=== PATIENT | female | born 1980 | race Caucasian/White ===

== ENCOUNTER 2017-01-27 15:18 | Emergency (ER) | payer MEDICARE, MEDICAID ==
[2017-01-27] MEDS ORDERED: Ketorolac 60 MG/2 ML SDV IM ONE (15:28)
[2017-01-27] MEDS ORDERED: Acetaminophen/oxyCODONE 325-5 MG Tab PO ONE (16:14)
[2017-01-27] MEDS ORDERED: Acetaminophen/HYDROcodone 325-5 MG Tab PO ONE (16:16)
--- NOTE | 2017-01-27 16:24 | EDM.PDOC ---
ED HPI GENERAL MEDICAL PROBLEM - General Chief Complaint: Abdominal Pain Stated Complaint: LOWER ABD PAIN Time Seen by Provider: 01/27/17 16:00 Source of Information: Reports: Patient, Old Records History Limitations: Reports: No Limitations - History of Present Illness INITIAL COMMENTS - FREE TEXT/NARRATIVE: 36 yo female with a pHx of frequent ovarian cysts who presents today with left hemipelvic pain. Pain began fairly abruptly. No fever. Some brownish vaginal discharge. No change in bowels from her normal. Pain waxes and wanes. Has a Mirena IUD and normally does not have menstrual periods with this in. Has no nausea. Pain 8/10 in severity. No dysuria. 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: Reports: Other (see below) (none) L lower abdomen Pain Score (Numeric/FACES): 9 - Related Data Allergies Allergy/AdvReac Type Severity Reaction Status Date / Time oxycodone HCl [From Percocet] Allergy Itching Verified 07/02/16 14:12 tramadol Allergy Hives Verified 07/02/16 14:12 IV Dye Allergy Swelling Uncoded 01/04/15 16:27 Home Meds: Home Meds ALPRAZolam [Alprazolam] 0.5 mg PO BID PRN 03/09/16 [History] tiZANidine [Zanaflex] 4 mg PO BID 03/09/16 [History] Ondansetron [Zofran ODT] 4 mg PO Q6H PRN #7 tab.dis 07/02/16 [Rx] Sertraline [Zoloft] 50 mg PO DAILY 07/02/16 [History] Diclofenac Sodium [Diclofenac Sodium] 75 mg BID 01/27/17 [History] rOPINIRole HCl [Requip] 1 mg PO BEDTIME 01/27/17 [History] Past Medical History Genitourinary History: Reports: UTI, 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: Other OB/BYN History: leep procedure Musculoskeletal History: Reports: Fibromyalgia Other Musculoskeletal History: patient states she had a 'bad' right knee Psychiatric History: Reports: Anxiety Other Oncologic History: hx of stage 3 cervicaL CA Social & Family History - Family History Family Medical History: Noncontributory - Tobacco Use Smoking Status *Q: Current Every Day Smoker Years of Tobacco use: 20 Packs/Tins Daily: 1 Used Tobacco, but Quit: No Second Hand Smoke Exposure: Yes - Caffeine Use Caffeine Use: Reports: Coffee, Energy Drinks, Soda - Recreational Drug Use Recreational Drug Use: No - Living Situation & Occupation Living situation: Reports: Occupation: Disabled ED ROS GENERAL - Review of Systems Review Of Systems: See Below Constitutional: Reports: No Symptoms. Denies: Fever, Chills, Diaphoresis, Decreased Appetite HEENT: Reports: No Symptoms Respiratory: Reports: No Symptoms Cardiovascular: Reports: No Symptoms Endocrine: Reports: No Symptoms GI/Abdominal: Reports: Abdominal Pain (L hemipelvic) : Reports: Other (amenorrhea). Denies: Dysuria, Flank Pain, Frequency, Hematuria, Incontinence, Urgency, Urinary Retention Musculoskeletal: Reports: No Symptoms Skin: Reports: No Symptoms Neurological: Reports: No Symptoms Psychiatric: Reports: No Symptoms ED EXAM, GI/ABD - Physical Exam Exam: See Below Exam Limited By: No Limitations General Appearance: Alert, WD/WN, No Apparent Distress Eyes: Bilateral: Normal Appearance Ears: Normal External Exam, Normal Canal, Hearing Grossly Normal Nose: Normal Inspection, Normal Mucosa, No Blood Throat/Mouth: Normal Inspection, Normal Lips, Normal Teeth, Normal Oropharynx, Normal Voice, No Airway Compromise Head: Atraumatic, Normocephalic Neck: Normal Inspection, Supple, Non-Tender Respiratory/Chest: No Respiratory Distress, Lungs Clear, Normal Breath Sounds, No Accessory Muscle Use Cardiovascular: Regular Rate, Rhythm, No Edema GI/Abdominal: Normal Bowel Sounds, Soft, Tenderness (L hemipelvis), Rebound. No : Hypoactive Bowel Sounds, Hyperactive Bowel Sounds, Distention, Guarding, Rigidity, Splenomegaly, Hernia, McBurney's Sign, Siddiqi's Sign Back Exam: Normal Inspection, Full Range of Motion. No: CVA Tenderness (R), CVA Tenderness (L) Extremities: Normal Inspection, Normal Range of Motion, Non-Tender Neurological: Alert, Oriented, CN II-XII Intact, Normal Cognition, No Motor/ Sensory Deficits Psychiatric: Normal Affect, Normal Mood Skin Exam: Warm, Dry, Intact, Normal Color, No Rash Lymphatic: No Adenopathy Course - Vital Signs Text/Narrative:: Toradol 60 mg IM, Pine 2 po Vaginal US-bilateral cysts, fluid in the R hemipelvis. No visualized ectopic . Last Recorded V/S: Last Vital Signs Temp 36.5 C 01/27/17 15:18 Pulse 73 01/27/17 15:18 Resp 18 01/27/17 15:18 BP 126/90 01/27/17 15:18 Pulse Ox 100 01/27/17 15:18 - Orders/Labs/Meds Orders: Active Orders 24 hr Category Date Time Status Pelvis Non OB Ltd [US] Stat Exams 01/27/17 16:12 Taken Transvaginal Non OB [US] Stat Exams 01/27/17 15:26 Taken Labs: Laboratory Tests 01/27/17 01/27/17 01/27/17 Range/Units 16:30 16:30 17:00 WBC 6.5 (4.5-12.0) X10-3/uL RBC 4.45 (3.23-5.20) x10(6)uL Hgb 13.7 (11.5-15.5) g/dL Hct 40.1 (30.0-51.3) % MCV 89.9 (80-96) fL MCH 30.7 (27.7-33.6) pg MCHC 34.1 (32.2-35.4) g/dL RDW 12.2 (11.5-15.5) % Plt Count 172 (125-369) X10(3)uL C-Reactive Protein < 0.5 (0.0-1.0) mg/dL Urine Color Yellow (YELLOW) Urine Appearance Clear (CLEAR) Urine pH 5.0 (5.0-6.5) Ur Specific [place] 1.010 (1.010-1.025) Urine Protein Negative (NEGATIVE) mg/dL Urine Glucose (UA) Normal (NEGATIVE) mg/dL Urine Ketones Negative (NEGATIVE) mg/dL Urine Occult Blood Negative (NEGATIVE) Urine Nitrite Negative (NEGATIVE) Urine Bilirubin Negative (NEGATIVE) Urine Urobilinogen Normal (NEGATIVE) mg/dL Ur Leukocyte Esterase Negative (NEGATIVE) Urine RBC 0-5 (0) Urine WBC 0-5 (0) Ur Squamous Epith Cells Moderate H (NS,R,O) Urine Bacteria Few H (NS) Urine HCG, Qual (NEGATIVE) 01/27/17 Range/Units 17:00 WBC (4.5-12.0) X10-3/uL RBC (3.23-5.20) x10(6)uL Hgb (11.5-15.5) g/dL Hct (30.0-51.3) % MCV (80-96) fL MCH (27.7-33.6) pg MCHC (32.2-35.4) g/dL RDW (11.5-15.5) % Plt Count (125-369) X10(3)uL C-Reactive Protein (0.0-1.0) mg/dL Urine Color (YELLOW) Urine Appearance (CLEAR) Urine pH (5.0-6.5) Ur Specific [place] (1.010-1.025) Urine Protein (NEGATIVE) mg/dL Urine Glucose (UA) (NEGATIVE) mg/dL Urine Ketones (NEGATIVE) mg/dL Urine Occult Blood (NEGATIVE) Urine Nitrite (NEGATIVE) Urine Bilirubin (NEGATIVE) Urine Urobilinogen (NEGATIVE) mg/dL Ur Leukocyte Esterase (NEGATIVE) Urine RBC (0) Urine WBC (0) Ur Squamous Epith Cells (NS,R,O) Urine Bacteria (NS) Urine HCG, Qual Negative (NEGATIVE) Meds: Medications Discontinued Medications Generic Name Dose Route Start Last Admin Trade Name Freq PRN Reason Stop Dose Admin Hydrocodone Bitart/Acetaminophen 2 tab 01/27/17 16:16 01/27/17 16:27 Pine 325-5 Mg PO 01/27/17 16:17 2 tab ONETIME ONE Administration Ketorolac Tromethamine 60 mg 01/27/17 15:28 01/27/17 15:30 Toradol IM 01/27/17 15:29 60 mg ONETIME ONE Administration Oxycodone/Acetaminophen 1 tab 01/27/17 16:14 Percocet 325-5 Mg PO 01/27/17 16:15 ONETIME ONE Departure - Departure Time of Disposition: 17:35 Disposition: Home, Self-Care 01 Condition: Fair Clinical Impression: Pelvic pain - Discharge Information Forms: ED Department Discharge - My Orders Last 24 Hours: My Active Orders 01/27/17 15:26 Transvaginal Non OB [US] Stat 01/27/17 16:12 Pelvis Non OB Ltd [US] Stat - Assessment/Plan Last 24 Hours: My Active Orders 01/27/17 15:26 Transvaginal Non OB [US] Stat 01/27/17 16:12 Pelvis Non OB Ltd [US] Stat
[2017-01-27 19:30] VITALS: BP 122/82
--- NOTE | 2017-01-28 13:20 | US ---
INDICATION: Pelvic pain. PELVIC ULTRASOUND, NON-OB, LIMITED: Utilizing transabdominal probe, multiple ultrasonic images were obtained. The urinary bladder was empty, limiting the examination. No gross abnormality was seen, however, visualization with transvaginal probe will be necessary for further evaluation. INDICATION: Pelvic pain/need better visualization of the uterus and ovaries than was possible with the transabdominal probe. TRANSVAGINAL PELVIC ULTRASOUND, NON-OB: Utilizing transvaginal probe, multiple ultrasonic images were obtained and revealed free fluid posterior cul-de-sac and right adnexal area, which may be physiologic, but should be correlated clinically. The right ovary measured 3.3 x 3.2 x 1.5 cm with follicles present, the largest of which was approximately 1.15 cm. There is an appearance of a septation in one of the cystic structures, which is of questionable significance, producing a cyst within a cyst appearance. This could be reexamined with transvaginal probe in 2 or 6 weeks to confirm an involuting physiologic process. The uterus is retroflexed with a posterior myometrial mass which measured 1.82 x 1.38 x 1.10 cm. This shows fairly intense blood flow within it. It may represent an actively growing fibroid. Other than benign disease is difficult to entirely exclude, however, with the amount of blood flow present and follow- up may be warranted. There may be slight impingement of this mass on the endometrial cavity. The endometrial cavity was otherwise unremarkable, measuring approximately 5 mm. The uterus itself measured 6.2 x 5.1 x 3.9 cm. The left ovary measured 3 x 1.3 x 2.5 cm with a 1-cm follicle present. There was some minimal free fluid about the left ovary also noted. No adnexal mass lesions were identified. IMPRESSION: 1. Vascular mass posterior fundal myometrium, measuring a maximum of 1.8 cm. This likely represents a fibroid. However, follow-up may be warranted with the amount of blood flow present. It appears to be impinging on the border of the endometrium. Depending upon clinical correlation, follow-up ultrasound in 1-3 months or MRI of the pelvis may be helpful for further evaluation. 2. Ovaries appear fairly normal, with follicles bilaterally. One on the right has a slightly complex appearance, but still likely represents a benign process. 3. Free fluid noted in the pelvis which may be physiologic, but should be correlated clinically. MTDD
== END 2017-01-27 17:44 | disposition home or self-care (01) ==
LOC: FB.ED 15:18
DX: R10.2 Pelvic and perineal pain (principal); F41.9 Anxiety disorder, unspecified; F17.210 Nicotine dependence, cigarettes, uncomplicated; Z85.41 Personal history of malignant neoplasm of cervix uteri; Z79.899 Other long term (current) drug therapy; Z88.5 Allergy status to narcotic agent; Z88.6 Allergy status to analgesic agent; Z91.041 Radiographic dye allergy status; Z87.440 Personal history of urinary (tract) infections
CPT/HCPCS: 36415; 76830; 76857; 81001; 81025; 85027; 86140; 96372; 99284; A9270; J1885; 99283

== ENCOUNTER 2017-06-06 13:06 | Emergency (ER) | payer MEDICAID, MEDICARE ==
[2017-06-06 13:23] VITALS: BP 111/87
[2017-06-06] MEDS ORDERED: Ketorolac 60 MG/2 ML SDV IM ONE (13:43)
--- NOTE | 2017-06-06 13:50 | EDM.PDOC ---
ED HPI GENERAL MEDICAL PROBLEM - General Chief Complaint: Lower Extremity Injury/Pain Stated Complaint: RT HIP PAIN Time Seen by Provider: 06/06/17 13:30 Source of Information: Reports: Patient, Old Records History Limitations: Reports: No Limitations - History of Present Illness INITIAL COMMENTS - FREE TEXT/NARRATIVE: Jacquie reports some escalation of chronic pain affecting the R hip and lower back, more recently from attempting to do a load of laundry. Pain is worse with wt bearing on the R leg at the hip. 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 A more recent cortisone injection was administered by an orthopedist in [place] in December 2016. She had only temporary relief of some of her sxs. Her medical hx is complicated by reported fibromyalgia. She takes Volatren po for pain control. - Related Data Allergies Allergy/AdvReac Type Severity Reaction Status Date / Time oxycodone HCl [From Percocet] Allergy Itching Verified 06/06/17 13:12 tramadol Allergy Hives Verified 06/06/17 13:12 IV Dye Allergy Swelling Uncoded 06/06/17 13:12 Home Meds: Home Meds ALPRAZolam [Alprazolam] 0.5 mg PO BID PRN 03/09/16 [History] tiZANidine [Zanaflex] 4 mg PO BEDTIME 03/09/16 [History] Ondansetron [Zofran ODT] 4 mg PO Q6H PRN #7 tab.dis 07/02/16 [Rx] Sertraline [Zoloft] 50 mg PO DAILY 07/02/16 [History] Acetaminophen/HYDROcodone [[place] 325-10 MG] 1 - 2 tab PO Q6H PRN #10 tab [Rx] Diclofenac Sodium [Diclofenac Sodium] 75 mg PO BID 01/27/17 [History] rOPINIRole HCl [Requip] 1 mg PO BEDTIME 01/27/17 [History] tiZANidine HCl [Zanaflex] 2 mg PO DAILY 06/06/17 [History] Past Medical History Gastrointestinal History: Reports: Irritable Bowel Syndrome Genitourinary History: Reports: UTI, Recurrent 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 OB/BYN History: leep procedure Musculoskeletal History: Reports: Fibromyalgia Other Musculoskeletal History: patient states she had a 'bad' right knee Neurological History: Reports: Migraines Psychiatric History: Reports: Anxiety Other Oncologic History: hx of stage 3 cervicaL CA - Infectious Disease History Infectious Disease History: Reports: Chicken Pox - Past Surgical History HEENT Surgical History: Reports: Oral Surgery Social & Family History - Family History Family Medical History: Noncontributory - Tobacco Use Smoking Status *Q: Current Every Day Smoker Years of Tobacco use: 20 Packs/Tins Daily: 0.5 Used Tobacco, but Quit: No Second Hand Smoke Exposure: Yes - Caffeine Use Caffeine Use: Reports: Coffee, Energy Drinks, Soda - Recreational Drug Use Recreational Drug Use: Yes Recreational Drug Type: Reports: Marijuana/Hashish Recreational Drug Use Frequency: Socially - Living Situation & Occupation Living situation: Reports: Occupation: Disabled Review of Systems - Review of Systems Review Of Systems: ROS reveals no pertinent complaints other than HPI. ED EXAM, GENERAL - Physical Exam Exam: See Below Exam Limited By: No Limitations General Appearance: Alert, WD/WN, Anxious, Moderate Distress Head: Normocephalic Neck: Normal Inspection, Supple, Non-Tender, Full Range of Motion Respiratory/Chest: Lungs Clear, Chest Non-Tender Cardiovascular: Regular Rate, Rhythm GI/Abdominal: Normal Bowel Sounds, Soft, Non-Tender, No Organomegaly, No Distention, No Mass Rectal (Female) Exam: Deferred Back Exam: Other (mild scoliosis with convexity to L) Extremities: Leg Pain (R hip with maneuver; R knee: some patellar laxity, no joint effusion), Limited Range of Motion (R hip) Neurological: Alert, Oriented, CN II-XII Intact, Normal Cognition, Normal Reflexes, No Motor/Sensory Deficits Psychiatric: Normal Affect, Anxious Skin Exam: Warm, Dry Lymphatic: No Adenopathy Course - Vital Signs Text/Narrative:: Jacquie was administered Toradol 60 mg IM. She was given crutches for nonwt bearing to R leg. Last Recorded V/S: Last Vital Signs Temp 36.8 C 06/06/17 13:16 Pulse 89 06/06/17 13:16 Resp 19 06/06/17 13:16 BP 111/87 06/06/17 13:16 Pulse Ox 99 06/06/17 13:16 - Orders/Labs/Meds Meds: Medications Discontinued Medications Generic Name Dose Route Start Last Admin Trade Name Freq PRN Reason Stop Dose Admin Ketorolac Tromethamine 60 mg 06/06/17 13:43 Toradol IM 06/06/17 13:44 ONETIME ONE Departure - Departure Time of Disposition: 13:54 Disposition: Home, Self-Care 01 Condition: Fair Clinical Impression: Hip deformity, acquired Qualifiers: Laterality: right Qualified Code(s): M21.951 - Unspecified acquired deformity of right thigh - Discharge Information Referrals: Génesis Perry POST ACUTE CARE NURSE PRACTITIONER [Primary Care Provider] - - Problem List & Annotations (1) Hip deformity, acquired SNOMED Code(s): 29460489 Code(s): M21.959 - UNSPECIFIED ACQUIRED DEFORMITY OF UNSPECIFIED THIGH Status: Acute Priority: Low Annotation/Comment:: Follow up with orthopedist in [place], [place]. Qualifiers: Laterality: right Qualified Code(s): M21.951 - Unspecified acquired deformity of right thigh - Problem List Review Problem List Initiated/Reviewed/Updated: Yes - Assessment/Plan Plan: Follow up with orthopedist.
== END 2017-06-06 14:09 | disposition home or self-care (01) ==
LOC: FB.ED 13:06
DX: M21.951 Unspecified acquired deformity of right thigh (principal); F17.210 Nicotine dependence, cigarettes, uncomplicated; F41.9 Anxiety disorder, unspecified; Z79.899 Other long term (current) drug therapy; Z88.5 Allergy status to narcotic agent; Z88.6 Allergy status to analgesic agent; Z91.041 Radiographic dye allergy status
CPT/HCPCS: 96372; 99283; J1885; 99282

== ENCOUNTER 2017-11-25 23:29 | Emergency (ER) | payer MEDICARE, MEDICAID ==
[2017-11-26] MEDS ORDERED: Ketorolac 30 MG/ML SDV IM ONE (00:04)
--- NOTE | 2017-11-26 00:06 | EDM.PDOC ---
ED HPI GENERAL MEDICAL PROBLEM - General Chief Complaint: Eye Problems Stated Complaint: EYES PROBLEM Time Seen by Provider: 11/25/17 23:40 Source of Information: Reports: Patient History Limitations: Reports: No Limitations - History of Present Illness INITIAL COMMENTS - FREE TEXT/NARRATIVE: Jacquie reports reddened eyes over the past 5 days, with some discharge R>L. She was at [facility] this week for unrelated issues, and eye sxs seemed to improve on the journey home last pm. She reinserted her extended wear contacts last night, and awoke later today with burning eye pain bilaterally, with lacrimation and photophobia. Pain has been unconsolable. She tried some Gentamycin oph gtts belonging to spouse which did not help, and came to the [facility] ED this late pm for treatment. - Related Data Allergies Allergy/AdvReac Type Severity Reaction Status Date / Time gabapentin Allergy Headache Verified 11/25/17 23:59 oxycodone HCl [From Percocet] Allergy Itching Verified 06/06/17 13:12 tramadol Allergy Hives Verified 11/25/17 23:59 IV Dye Allergy Swelling Uncoded 06/06/17 13:12 Home Meds: Home Meds ALPRAZolam [Alprazolam] 0.5 mg PO BID PRN 03/09/16 [History] tiZANidine [Zanaflex] 4 mg PO BEDTIME 03/09/16 [History] Ondansetron [Zofran ODT] 4 mg PO Q6H PRN #7 tab.dis 07/02/16 [Rx] Sertraline [Zoloft] 50 mg PO DAILY 07/02/16 [History] Acetaminophen/HYDROcodone [[place] 325-10 MG] 1 - 2 tab PO Q6H PRN #10 tab [Rx] Diclofenac Sodium 75 mg PO BID 01/27/17 [History] rOPINIRole HCl [Requip] 1 mg PO BEDTIME 01/27/17 [History] tiZANidine HCl [Zanaflex] 2 mg PO DAILY 06/06/17 [History] Past Medical History Gastrointestinal History: Reports: Irritable Bowel Syndrome Genitourinary History: Reports: UTI, Recurrent 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 OB/BYN History: leep procedure Musculoskeletal History: Reports: Fibromyalgia Other Musculoskeletal History: patient states she had a 'bad' right knee Neurological History: Reports: Migraines Psychiatric History: Reports: Anxiety Other Oncologic History: hx of stage 3 cervicaL CA - Infectious Disease History Infectious Disease History: Reports: Chicken Pox - Past Surgical History HEENT Surgical History: Reports: Oral Surgery Social & Family History - Family History Family Medical History: Noncontributory - Caffeine Use Caffeine Use: Reports: Coffee, Energy Drinks, Soda - Living Situation & Occupation Living situation: Reports: Occupation: Disabled ED ROS GENERAL - Review of Systems Review Of Systems: See Below Constitutional: Reports: Malaise HEENT: Reports: Contact Lenses, Eye Discharge, Eye Pain, Rhinitis, Throat Pain Respiratory: Reports: No Symptoms Cardiovascular: Reports: No Symptoms Endocrine: Reports: No Symptoms GI/Abdominal: Reports: No Symptoms : Reports: No Symptoms Musculoskeletal: Reports: No Symptoms Skin: Reports: No Symptoms Neurological: Reports: No Symptoms Psychiatric: Reports: No Symptoms Hematologic/Lymphatic: Reports: No Symptoms Immunologic: Reports: No Symptoms ED EXAM GENERAL W FULL EYE - Physical Exam Exam: See Below Exam Limited By: Physical Impairment General Appearance: Alert, WD/WN, Anxious, Moderate Distress Eye Exam: Bilateral Eye: Conjunctival Injection, EOMI, PERRL Eyelids: Bilateral: Normal Appearance Conjunctiva & Sclera: Bilateral: Injected Cornea Exam: Bilateral: Corneal Abrasion (2 abrasions OS, 1 abrasion OD), Examined with Flourescein Extraocular Movements: Bilateral: Intact Pupils: Normal Accommodation Pupillary Size: Bilateral: 3 mm Pupillary Reaction: Bilateral: Brisk Anterior Chamber: Bilateral: Normal Appearance Posterior Chamber: Bilateral: Normal Funduscopic Ears: Normal External Exam, Normal TMs Nose: Normal Inspection, Normal Mucosa Throat/Mouth: Normal Inspection, Normal Lips, Normal Teeth, Normal Gums, Normal Oropharynx, Normal Voice Head: Normocephalic Neck: Normal Inspection, Supple, Non-Tender, Full Range of Motion Respiratory/Chest: Lungs Clear, Normal Breath Sounds Cardiovascular: Regular Rate, Rhythm Back Exam: Normal Inspection Extremities: Normal Inspection Neurological: Alert, Oriented, CN II-XII Intact, Normal Cognition, Normal Gait, No Motor/Sensory Deficits Psychiatric: Normal Affect, Anxious Skin Exam: Warm, Dry, Intact Lymphatic: No Adenopathy Course - Vital Signs Text/Narrative:: Following application of 0.5% Tetracaine opth gtts, external exam noted marked conjunctival injection, no fb seen; fluorscein stain confirms 1 corneal abrasion at 9 o'clock position OD; 1 corneal abrasion at 4 o'clock and 12 o' clock OS; no fb seen; ant chamber deep, fundi benign; pain was improved with Tetracaine gtts and Toradol 30 mg IM. Departure - Departure Time of Disposition: 00:21 Disposition: Home, Self-Care 01 Condition: Fair Clinical Impression: Corneal abrasion of both eyes due to contact lens - Discharge Information Referrals: Génesis Perry BIAS CUTTER [Primary Care Provider] - Forms: ED Department Discharge - Problem List & Annotations (1) Corneal abrasion of both eyes due to contact lens SNOMED Code(s): 963328359 Code(s): H18.823 - CORNEAL DISORDER DUE TO CONTACT LENS, BILATERAL Status: Acute Current Visit: Yes Annotation/Comment:: I sent Jacquie home with Sulamyd 10% opth gtts q 3 hrs, Ibuprofen tabs for pain, suggested sun glasses, and no contact lenses until cleared by provider. She was improved at time of discharge. - Problem List Review Problem List Initiated/Reviewed/Updated: Yes - Assessment/Plan Plan: Follow up with PCP.
[2017-11-26] MEDS ORDERED: Sulfacetamide 10% Ophth Soln 15 ML Bottle ONE (00:15)
[2017-11-26 08:10] VITALS: BP 105/77
== END 2017-11-26 00:45 | disposition home or self-care (01) ==
LOC: FB.ED 23:29
DX: H18.823 Corneal disorder due to contact lens, bilateral (principal); F41.9 Anxiety disorder, unspecified; G43.909 Migraine, unspecified, not intractable, without status migrainosus; Z79.899 Other long term (current) drug therapy; Z91.041 Radiographic dye allergy status; Z88.5 Allergy status to narcotic agent
CPT/HCPCS: 96372; 99282; A9270; J1885

== ENCOUNTER 2017-12-05 17:52 | Emergency (ER) | payer MEDICARE, MEDICAID ==
[2017-12-05 18:17] VITALS: BP 95/68
--- NOTE | 2017-12-05 20:03 | EDM.PDOC ---
ED HPI GENERAL MEDICAL PROBLEM - General Chief Complaint: Eye Problems Stated Complaint: SCRATCHED CORNEAS Time Seen by Provider: 12/05/17 19:25 Source of Information: Reports: Patient, Family History Limitations: Reports: No Limitations - History of Present Illness INITIAL COMMENTS - FREE TEXT/NARRATIVE: c/o b/l eye pain pt to [facility] over 1w ago for treatment for fibromyalgia and "a host of other problems" says she is disabled from the above had corneal abrasions b/l 1w ago when she removed her 30 day wear contact lens, she left them out x 1w, then put in 1d wear lens 2d ago, says she forgot to take them out yesterday, took them out this AM, has had b/l pain and tearing pt with minor irritation b/l but otherwise normal PE pt advised to continue current pain meds and to use cool compresses pt told that additional pain meds were not indicated for minor eye irritation pt left with her sister angry saying that they would be calling the office Bilateral eyes Pain Score (Numeric/FACES): 10 - Related Data Allergies Allergy/AdvReac Type Severity Reaction Status Date / Time gabapentin Allergy Headache Verified 12/05/17 18:09 oxycodone HCl [From Percocet] Allergy Itching Verified 12/05/17 18:09 tramadol Allergy Itching Verified 12/05/17 18:09 IV Dye Allergy Anaphylactic Uncoded 12/05/17 18:09 Shock Home Meds: Home Meds ALPRAZolam [Alprazolam] 0.5 mg PO BID PRN 03/09/16 [History] tiZANidine [Zanaflex] 4 mg PO BEDTIME 03/09/16 [History] Ondansetron [Zofran ODT] 4 mg PO Q6H PRN #7 tab.dis 07/02/16 [Rx] Sertraline [Zoloft] 100 mg PO DAILY 07/02/16 [History] Acetaminophen/HYDROcodone [[place] 325-10 MG] 1 - 2 tab PO Q6H PRN #10 tab [Rx] Diclofenac Sodium 75 mg PO BID 01/27/17 [History] rOPINIRole HCl [Requip] 1 mg PO BEDTIME 01/27/17 [History] tiZANidine HCl [Zanaflex] 2 mg PO DAILY 06/06/17 [History] Amphetamine/Dextroamphetamine [Adderall] 7.5 mg DAILY 12/05/17 [History] Sulfacetamide Sodium 1 drop EYEBOTH Q3H PRN 12/05/17 [History] Past Medical History HEENT History: Reports: Other (See Below) Other HEENT History: corneal abrasions Gastrointestinal History: Reports: Irritable Bowel Syndrome Genitourinary History: Reports: UTI, 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 History: Reports: Polycystic Ovaries, , Other (See Below) Other OB/BYN History: leep procedure, , cysts removed Musculoskeletal History: Reports: Fracture, Fibromyalgia Other Musculoskeletal History: patient states she had a 'bad' right knee, hx fracture L wrist, 'tear in R hip & elbow Neurological History: Reports: Migraines Psychiatric History: Reports: ADD, Anxiety, Depression Oncologic (Cancer) History: Reports: Cervix Other Oncologic History: hx of stage 3 cervicaL CA - Infectious Disease History Infectious Disease History: Reports: Chicken Pox - Past Surgical History HEENT Surgical History: Reports: Oral Surgery GI Surgical History: Reports: Colonoscopy, EGD Female Surgical History: Reports: Breast Reduction Social & Family History - Family History Family Medical History: Noncontributory - Tobacco Use Smoking Status *Q: Current Every Day Smoker Years of Tobacco use: 21 Packs/Tins Daily: 0.5 - Caffeine Use Caffeine Use: Reports: Tea - Alcohol Use Days Per Week of Alcohol Use: 1 Number of Drinks Per Day: 4 Total Drinks Per Week: 4 - Recreational Drug Use Recreational Drug Use: No Recreational Drug Type: Reports: Marijuana/Hashish Other Recreational Drug Type: 2-3 x per week Recreational Drug Use Frequency: Weekly - Living Situation & Occupation Living situation: Reports: Occupation: Disabled ED ROS GENERAL - Review of Systems Review Of Systems: See Below Constitutional: Reports: No Symptoms HEENT: Reports: Eye Pain Respiratory: Reports: No Symptoms Cardiovascular: Reports: No Symptoms Endocrine: Reports: No Symptoms GI/Abdominal: Reports: No Symptoms : Reports: No Symptoms Musculoskeletal: Reports: No Symptoms Skin: Reports: No Symptoms Neurological: Reports: No Symptoms Psychiatric: Reports: No Symptoms Hematologic/Lymphatic: Reports: No Symptoms Immunologic: Reports: No Symptoms ED EXAM GENERAL W FULL EYE - Physical Exam Exam: See Below Exam Limited By: No Limitations General Appearance: Alert, WD/WN, Other (very emotional, poor coping skills, dependency needs) Eye Exam: Bilateral Eye: Normal Inspection, Other (other then slight symmetric hyperemia the eye exam was normal b/l, flourscein instilled, no abrasions noted b/l, no f.b.) Extraocular Movements: Bilateral: Intact Pupillary Size: Bilateral: 4 mm Pupillary Reaction: Bilateral: Brisk Nose: Normal Inspection, Normal Mucosa, No Blood Throat/Mouth: Normal Inspection Head: Atraumatic, Normocephalic Neck: Normal Inspection. No: Lymphadenopathy (R), Lymphadenopathy (L) Course - Vital Signs Last Recorded V/S: Last Vital Signs Temp 36.8 C 12/05/17 18:08 Pulse 92 12/05/17 18:08 Resp 20 12/05/17 18:08 BP 95/68 12/05/17 18:08 Pulse Ox 99 12/05/17 18:08 Departure - Departure Time of Disposition: 20:06 Disposition: Home, Self-Care 01 Condition: Good Clinical Impression: Irritation of both eyes - Discharge Information Referrals: Génesis Perry PYTHON DJANGO DEVELOPER [Primary Care Provider] - Forms: ED Department Discharge Additional Instructions: Use cool compresses every hour as needed. No rubbing. Continue current pain meds. Use glasses for now. Contact your eye doctor regarding corrective lens as glasses appear to your best option. You may discontinue the medicated eye drops that you were given one week ago as they will provide no added benefit.
== END 2017-12-05 20:00 | disposition home or self-care (01) ==
LOC: FB.ED 17:52
DX: H57.8 Other specified disorders of eye and adnexa (principal); F17.210 Nicotine dependence, cigarettes, uncomplicated; F41.9 Anxiety disorder, unspecified; F32.9 Major depressive disorder, single episode, unspecified; Z79.899 Other long term (current) drug therapy; Z88.6 Allergy status to analgesic agent; Z88.5 Allergy status to narcotic agent; Z88.8 Allergy status to other drugs, medicaments and biological substances; Z91.041 Radiographic dye allergy status
CPT/HCPCS: 99282; 99283

== ENCOUNTER 2018-08-11 06:58 | Day surgery (SDC) | payer MEDICAID, MEDICARE ==
[~2018-08-11 06:58] MED LIST: Lactated Ringers 1,000 ML IV SCH; Sodium Chloride 0.9% 10 ML Syringe FLUSH PRN
[2018-08-11] MEDS ORDERED: fentaNYL 100 MCG/2 ML SDV IV ONE (06:59)
[2018-08-11] MEDS ORDERED: Ketorolac 30 MG/ML SDV IVPUSH ONE (06:59)
[2018-08-11] MEDS ORDERED: Lactated Ringers 1,000 ML IV ONE (06:59)
[2018-08-11] MEDS ORDERED: ceFAZolin 1 GM Vial IV ONE (06:59)
[2018-08-11] MEDS ORDERED: Lidocaine 2% 100 MG/5 ML Syringe IVPUSH ONE (06:59)
[2018-08-11] MEDS ORDERED: Propofol 200 MG/20 ML SDV IV ONE (06:59)
[2018-08-11] MEDS ORDERED: Ondansetron 4 MG/2 ML SDV IVPUSH ONE (06:59)
[2018-08-11] MEDS ORDERED: Dexamethasone 4 MG/ML 5 ML MDV IVPUSH ONE (06:59)
[2018-08-11] MEDS ORDERED: HYDROmorphone 2 MG/ML SDV IV ONE (06:59)
[2018-08-11] MEDS ORDERED: Midazolam 1 MG/ML 2 ML SDV IV ONE (06:59)
--- NOTE | 2018-08-11 08:15 | PCM.PN ---
- General Info Date of Service: 08/11/18 - Review of Systems Systems Review Comment:: 38 y/o female here for hemorrhoidectomy. She is medically stable to proceed with no significant changes to her health status since her last exam. I have again discussed the proposed hemorrhoidectomy with the patient. Expectations and instructions reviewed. She agrees to proceed accepting risks. - Patient Data Vitals - Most Recent: Last Vital Signs Temp 99.2 F 08/11/18 07:26 Pulse 75 08/11/18 07:26 Resp 17 08/11/18 07:26 BP 100/60 08/11/18 07:26 Pulse Ox 97 08/11/18 07:26 Weight - Most Recent: 124 lb Lab Results Last 24 Hours: Laboratory Results - last 24 hr 08/11/18 Range/Units 07:13 Urine HCG, Qual Negative (NEGATIVE) Med Orders - Current: Current Medications Lactated Ringer's (Ringers, Lactated) 1,000 mls @ 125 mls/hr IV ASDIRECTED TOMMIE Last Admin: 08/11/18 08:00 Dose: 125 mls/hr Sodium Chloride (Saline Flush) 10 ml FLUSH ASDIRECTED PRN PRN Reason: Keep Vein Open - Problem List Review Problem List Initiated/Reviewed/Updated: Yes - My Orders Last 24 Hours: My Active Orders 08/10/18 12:08 Resuscitation Status Routine 08/11/18 06:45 Patient Status [ADT] Routine Patient to Empty Bladder [RC] ASDIRECTED RT Incentive Spirometry [RC] ASDIRECTED Verify Patient Consent Obtain [RC] ASDIRECTED Lactated Ringers [Ringers, Lactated] 1,000 ml IV ASDIRECTED Sodium Chloride 0.9% [Saline Flush] 10 ml FLUSH ASDIRECTED PRN Peripheral IV Insertion Adult [OM.PC] Routine Sequential Compression Device [OM.PC] Routine 08/11/18 Breakfast Nothing Per Oral Diet [DIET] - Assessment Assessment:: Painful Hemorrhoids - Plan Plan:: Hemorrhoidectomy
[2018-08-11] MEDS ORDERED: Bupivacaine 0.5%/EPINEPHrine 1:200,000 50 ML MDV INJECT ONE (08:32)
--- NOTE | 2018-08-11 09:13 | PCM.OPNOTE ---
- General Post-Op/Procedure Note Date of Surgery/Procedure: 08/11/18 Operative Procedure(s): Hemorrhoidectomy Findings: Multiple large internal/external hemorrhoid complexes Pre Op Diagnosis: Symptomatic hemorhoids Post-Op Diagnosis: Same Anesthesia Technique: General ET Tube Primary Surgeon: Ronni Shields Pathology: hemorrhoids Output, Urine Amount: 0 EBL in mLs: 25 Complications: None Condition: Good
[2018-08-11 11:15] VITALS: BP 116/54
--- NOTE | 2018-08-11 13:38 | OR ---
DATE OF OPERATION: 08/11/2018 SURGEON: Ronni Shields MD PREOPERATIVE DIAGNOSIS: Symptomatic hemorrhoids. POSTOPERATIVE DIAGNOSIS: Symptomatic hemorrhoids. OPERATION PERFORMED: Hemorrhoidectomy. INDICATIONS FOR SURGERY: This 38-year-old female has presented with markedly painful hemorrhoids. She has some bleeding and frequent episodes of pain which is sometimes severe from these and she comes for hemorrhoidectomy. FINDINGS: Three major internal external hemorrhoidal complexes were identified. These were located at the 11, 7, and 4 o'clock positions. They are all prominent and show easy bleedability. They are not acutely inflamed at this time and no other pathology is seen. PROCEDURE IN DETAIL: The patient was taken to the operating room. She was given general endotracheal anesthesia. She was placed in a dorsal lithotomy position. The perineum was sterilely prepped with Betadine and draped. Digital rectal exam and anal dilation are performed. The half-soria operating anoscope is placed and careful examination of the anal canal was carried out. Hemorrhoids are identified as listed above. At each of the 3 locations, the hemorrhoid complex was removed. At each place, the hemorrhoidal vessel was suture ligated with 2-0 Vicryl. The area was infiltrated with Marcaine with epinephrine. The hemorrhoid is then excised preserving the underlying sphincter muscle and the mucosal defect was closed with a running 2-0 Vicryl. In this manner, these 3 major hemorrhoid complexes are removed. Careful inspection showed no sign of bleeding or any other complication. An Adaptic pack covered with dibucaine ointment was placed followed by a sterile dressing. The patient was then awakened, extubated, and taken from the operating room in satisfactory condition. ESTIMATED BLOOD LOSS: 25 mL. COMPLICATIONS: None. PROGNOSIS: Good. /[id number] IRENE/JASPER COON
== END 2018-08-11 11:19 | disposition home or self-care (01) ==
LOC: FB.SDS 06:58
PROVIDERS: ATTEND Surgery
DX: K64.4 Residual hemorrhoidal skin tags (principal); K64.8 Other hemorrhoids; F41.9 Anxiety disorder, unspecified; F32.9 Major depressive disorder, single episode, unspecified; F43.10 Post-traumatic stress disorder, unspecified; F98.8 Other specified behavioral and emotional disorders with onset usually occurring in childhood and adolescence; Z79.899 Other long term (current) drug therapy
CPT/HCPCS: 00902-QZ; 81025; 88304; J0690; J1100; J1170; J1885; J2001; J2250; J2405; J2704; J3010; J3490; J7120

== ENCOUNTER 2019-04-12 20:57 | Emergency (ER) | payer MEDICARE ==
[2019-04-12] MEDS ORDERED: hydrOXYzine HCl 50 MG/ML SDV IM ONE (21:11)
[2019-04-12] MEDS ORDERED: Morphine 10 MG/ML Syringe IM ONE ×2 (21:11→22:58)
[2019-04-12] MEDS ORDERED: Morphine 10 MG/ML SDV ONE (21:15)
[2019-04-12] MEDS: Morphine 10 MG/ML SDV IVPUSH ONE ×2 (21:20→23:00)
--- NOTE | 2019-04-13 03:28 | ER ---
DATE SEEN: 04/12/2019 REASON FOR VISIT: Shoulder pain. HISTORY OF PRESENT ILLNESS: This is a 39-year-old female complaining of right shoulder pain since yesterday. She had a lot of weeding and yard work, and since that time has had exacerbation of her chronic pain. She took Lortab at home and some diclofenac with no relief. PAST MEDICAL HISTORY: Fibromyalgia, chronic right knee pain, chronic shoulder pain. ALLERGIES: Please see the [employer]. REVIEW OF SYSTEMS: All other systems negative. PHYSICAL EXAMINATION: VITAL SIGNS: Blood pressure normal, temperature 98.1. EXTREMITIES: Right shoulder, no obvious swelling or deformity. There is tenderness to palpation anteriorly and diminished range of motion. Peripheral pulses at the radius are present. MENTAL STATUS: Alert. NEUROLOGIC: Normal. IMPRESSION: Right shoulder pain, chronic, with moderate exacerbation. PLAN: 1. Morphine 5 mg IM and Vistaril 50 mg IM. 2. Follow up with PCP on Tuesday. 3. Return to the ED with any worsening symptoms. /[id number] PAIGE/JASPER
== END 2019-04-12 21:28 | disposition home or self-care (01) ==
LOC: FB.ED 20:57
DX: G89.29 Other chronic pain (principal); M25.511 Pain in right shoulder
CPT/HCPCS: 96372; 99282; J2270; J3410

== ENCOUNTER 2019-07-18 19:55 | Emergency (ER) | payer MEDICARE, MEDICAID ==
[2019-07-18] MEDS ORDERED: Cephalexin 500 MG Cap PO ONE (19:56)
[2019-07-18] MEDS ORDERED: Lidocaine 2% with EPINEPHrine 1:100,000 20 ML MDV INFILT ONE (19:56)
--- NOTE | 2019-07-18 20:29 | EDM.PDOC ---
ED HPI GENERAL MEDICAL PROBLEM - General Stated Complaint: CUT HAND Time Seen by Provider: 07/18/19 20:25 Source of Information: Reports: Patient History Limitations: Reports: No Limitations - History of Present Illness INITIAL COMMENTS - FREE TEXT/NARRATIVE: Sustained laceration to the left hand by a utility knife - Related Data Allergies Allergy/AdvReac Type Severity Reaction Status Date / Time gabapentin Allergy Headache Verified 04/12/19 21:06 oxycodone HCl [From Percocet] Allergy Itching Verified 04/12/19 21:06 tramadol Allergy Itching Verified 04/12/19 21:06 IV Dye Allergy Anaphylactic Uncoded 08/11/18 07:17 Shock Home Meds: Home Meds tiZANidine [Zanaflex] 4 mg PO TID 03/09/16 [History] Ondansetron [Zofran ODT] 4 mg PO Q6H PRN #7 tab.dis 07/02/16 [Rx] Sertraline [Zoloft] 100 mg PO DAILY 07/02/16 [History] Acetaminophen/HYDROcodone [[place] 325-10 MG] 1 - 2 tab PO Q6H PRN #10 tab [Rx] Diclofenac Sodium 75 mg PO BID 01/27/17 [History] rOPINIRole HCl [Requip] 1 mg PO BEDTIME 01/27/17 [History] Amphetamine/Dextroamphetamine [Adderall] 10 mg PO BID 12/05/17 [History] Diclofenac Sodium [Voltaren] 4 gm TP ASDIRECTED PRN 08/10/18 [History] Eletriptan HBr 40 mg PO DAILY PRN 08/10/18 [History] Hydrocortisone Acetate [Anusol-Hc] 25 mg RC BID PRN 08/10/18 [History] Ketorolac [Toradol] 10 mg PO TID PRN 08/10/18 [History] LORazepam [Ativan] 0.5 - 1 mg PO BID PRN 08/10/18 [History] Levonorgestrel [Kyleena] 1 each IY ASDIRECTED 08/10/18 [History] Lidocaine 5% 1 applic TOP Q4H PRN 08/10/18 [History] Promethazine [Phenergan] 25 mg PO Q4H 08/10/18 [History] Past Medical History HEENT History: Reports: Other (See Below) Other HEENT History: corneal abrasions Cardiovascular History: Reports: None Respiratory History: Reports: None Gastrointestinal History: Reports: Colon Polyp, Hemorrhoids, Irritable Bowel Syndrome Genitourinary History: Reports: UTI, Recurrent 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: Other (See Below), Polycystic Ovaries, Other AUTOMATIC PROFILE SHAPER OPERATOR History: leep procedure, , cysts removed Musculoskeletal History: Reports: Fibromyalgia, Fracture Other Musculoskeletal History: patient states she had a 'bad' right knee, hx fracture L wrist, 'tear in R hip & elbow Neurological History: Reports: Migraines Psychiatric History: Reports: ADD, Anxiety, Depression, PTSD Endocrine/Metabolic History: Reports: None Hematologic History: Reports: None Immunologic History: Reports: None Oncologic (Cancer) History: Reports: Cervix Other Oncologic History: hx of stage 3 cervicaL CA Dermatologic History: Reports: None - Infectious Disease History Infectious Disease History: Reports: Chicken Pox - Past Surgical History Head Surgeries/Procedures: Reports: None HEENT Surgical History: Reports: Oral Surgery GI Surgical History: Reports: Colonoscopy, EGD Female Surgical History: Reports: Breast Reduction Social & Family History - Family History Family Medical History: Noncontributory - Caffeine Use Caffeine Use: Reports: Tea - Living Situation & Occupation Living situation: Reports: Occupation: Disabled Review of Systems - Review of Systems Review Of Systems: Comprehensive ROS is negative, except as noted in HPI. ED EXAM, GENERAL - Physical Exam Exam: See Below Free Text/Narrative:: 3 cm laceration left palm General Appearance: Alert, WD/WN ED TRAUMA EXTREMITY PROCEDURES - Laceration/Wound Repair Left Medial Hand Lac/Wound Length In cm: 3 Appearance: Superficial, Moderately Contaminated Distal NVT: Neuro & Vascular Intact Anesthetic Type: Local Local Anesthesia - Lidocaine (Xylocaine): 2% with EPI Local Anesthetic Volume: 3cc Skin Prep: Chlorhexidine (Hibiciens) Exploration/Debridement/Repair: In a Bloodless Field Closed With: Sutures Suture Size: 4-0 Suture Type: Prolene Drain Placement: No Sterile Dressing Applied: Nurse Tetanus Status Addressed: Yes Complications: No Progress/Comments: Cephalexin 500 mg po tid x 5days Departure - Departure Time of Disposition: 20:27 Disposition: Home, Self-Care 01 Condition: Good Clinical Impression: Laceration - Discharge Information Referrals: Génesis Perry NP [Primary Care Provider] - - Problem List & Annotations (1) Laceration SNOMED Code(s): 777669407 Code(s): SLJ1122 - Status: Acute Current Visit: Yes Annotation/Comment :: left hand - Problem List Review Problem List Initiated/Reviewed/Updated: Yes - Assessment/Plan Plan: [place] home . Cephalexin for prophylaxis. Remove sutures in 1 week
== END 2019-07-18 20:45 | disposition home or self-care (01) ==
LOC: FB.ED 19:55
DX: S61.412A Laceration without foreign body of left hand, initial encounter (principal); F41.9 Anxiety disorder, unspecified; F32.9 Major depressive disorder, single episode, unspecified; Z88.5 Allergy status to narcotic agent; Z88.8 Allergy status to other drugs, medicaments and biological substances; Z91.041 Radiographic dye allergy status; Z79.899 Other long term (current) drug therapy; W26.0XXA Contact with knife, initial encounter
CPT/HCPCS: 12002; 99282; A9270; 99283

== ENCOUNTER 2019-12-20 12:42 | Emergency (ER) | payer MEDICARE, MEDICAID ==
[2019-12-20] MEDS ORDERED: LORazepam 2 MG/ML SDV IM PRN (13:27)
[2019-12-20] MEDS ORDERED: Potassium Chloride 20 MEQ Tab.ER PO ONE (14:07)
--- NOTE | 2019-12-20 14:11 | EDM.PDOC ---
ED HPI GENERAL MEDICAL PROBLEM - General Stated Complaint: BOTH HANDS NUMB,WEAKNESS Time Seen by Provider: 12/20/19 13:10 Source of Information: Reports: Patient History Limitations: Reports: No Limitations - History of Present Illness INITIAL COMMENTS - FREE TEXT/NARRATIVE: Patient presented to the ED because of peripheral numbness and tingling and she feels like she couldn't move her arm because of intense spasm. She was talking to her sas clinical programmer at 11 am and then she had an anxiety attack, took 1 mg xanax which didn't provide any relief. Bilateral Arm Pain Score (Numeric/FACES): 6 - Related Data Allergies Allergy/AdvReac Type Severity Reaction Status Date / Time gabapentin Allergy Headache Verified 12/20/19 13:04 oxycodone HCl [From Percocet] Allergy Itching Verified 12/20/19 13:04 tramadol Allergy Itching Verified 12/20/19 13:04 IV Dye Allergy Anaphylactic Uncoded 12/20/19 13:04 Shock Home Meds: Home Meds tiZANidine [Zanaflex] 4 mg PO TID PRN 03/09/16 [History] Ondansetron [Zofran ODT] 4 mg PO Q6H PRN #7 tab.dis 07/02/16 [Rx] Sertraline [Zoloft] 100 mg PO DAILY 07/02/16 [History] Acetaminophen/HYDROcodone [[place] 325-10 MG] 1 - 2 tab PO Q6H PRN #10 tab [Rx] Diclofenac Sodium 75 mg PO BID 01/27/17 [History] rOPINIRole HCl [Requip] 1 mg PO BEDTIME 01/27/17 [History] Amphetamine/Dextroamphetamine [Adderall] 10 mg PO BID 12/05/17 [History] Eletriptan Hydrobromide [Eletriptan HBr] 40 mg PO DAILY PRN 08/10/18 [History] Ketorolac [Toradol] 10 mg PO TID PRN 08/10/18 [History] LORazepam [Ativan] 0.5 - 1 mg PO BID PRN 08/10/18 [History] Lidocaine 5% 1 applic TOP Q4H PRN 08/10/18 [History] Promethazine [Phenergan] 25 mg PO Q4H 08/10/18 [History] levonorgestreL [Kyleena] 1 each IY ASDIRECTED 08/10/18 [History] Potassium Chloride [Klor-Con M20] 40 meq PO Q2H #4 tab.er 12/20/19 [Rx] hydrOXYzine pamoate [Vistaril] 50 mg PO Q6H PRN #30 cap 12/20/19 [Rx] Past Medical History HEENT History: Reports: Other (See Below) Other HEENT History: corneal abrasions Cardiovascular History: Reports: None Respiratory History: Reports: None Gastrointestinal History: Reports: Colon Polyp, Hemorrhoids, Irritable Bowel Syndrome Genitourinary History: Reports: UTI, Recurrent 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 (See Below), Polycystic Ovaries, Other CLERK STENOGRAPHER History: leep procedure, , cysts removed Musculoskeletal History: Reports: Fibromyalgia, Fracture Other Musculoskeletal History: patient states she had a 'bad' right knee, hx fracture L wrist, 'tear in R hip & elbow Neurological History: Reports: Migraines Psychiatric History: Reports: ADD, Anxiety, Depression, PTSD Endocrine/Metabolic History: Reports: None Hematologic History: Reports: None Immunologic History: Reports: None Oncologic (Cancer) History: Reports: Cervix Other Oncologic History: hx of stage 3 cervicaL CA Dermatologic History: Reports: None - Infectious Disease History Infectious Disease History: Reports: Chicken Pox - Past Surgical History Head Surgeries/Procedures: Reports: None HEENT Surgical History: Reports: Oral Surgery GI Surgical History: Reports: Colonoscopy, EGD Female Surgical History: Reports: Breast Reduction Social & Family History - Family History Family Medical History: Noncontributory - Caffeine Use Caffeine Use: Reports: Tea - Living Situation & Occupation Living situation: Reports: Occupation: Disabled ED ROS GENERAL - Review of Systems Review Of Systems: See Below Constitutional: Reports: No Symptoms HEENT: Reports: No Symptoms Respiratory: Reports: No Symptoms Cardiovascular: Reports: No Symptoms Endocrine: Reports: No Symptoms GI/Abdominal: Reports: No Symptoms : Reports: No Symptoms Musculoskeletal: Reports: No Symptoms Skin: Reports: No Symptoms Neurological: Reports: No Symptoms Psychiatric: Reports: Agitation, Anxiety ED EXAM, GENERAL - Physical Exam Exam: See Below Exam Limited By: No Limitations General Appearance: Alert, No Apparent Distress Eye Exam: Bilateral Eye: PERRL Ears: Normal External Exam Nose: Normal Inspection, Normal Mucosa Throat/Mouth: Normal Inspection, Normal Lips Head: Atraumatic, Normocephalic Neck: Normal Inspection, Supple, Non-Tender Respiratory/Chest: No Respiratory Distress, Lungs Clear Cardiovascular: Normal Peripheral Pulses, Regular Rate, Rhythm GI/Abdominal: Normal Bowel Sounds, Soft, Non-Tender Back Exam: Normal Inspection, Full Range of Motion Extremities: Normal Inspection, Normal Range of Motion, Non-Tender Neurological: Alert, Oriented, CN II-XII Intact Psychiatric: Anxious, Tearful Course - Vital Signs Text/Narrative:: labs reviewed and discussed with patient and verbalized full understanding Klor con 40 meq x1 ativan 2 mg IM x1 Vistaril 50 mg p[o x1 Last Recorded V/S: Last Vital Signs Temp 36.7 C 12/20/19 14:28 Pulse 73 12/20/19 14:28 Resp 18 12/20/19 14:28 BP 108/76 12/20/19 14:28 Pulse Ox 100 12/20/19 14:28 - Orders/Labs/Meds Labs: Laboratory Tests 12/20/19 12/20/19 Range/Units 13:30 13:30 Sodium 139 (135-145) mmol/L Potassium 3.4 L (3.5-5.3) mmol/L Chloride 104 (100-110) mmol/L Carbon Dioxide 23 (21-32) mmol/L BUN 19 H (7-18) mg/dL Creatinine 0.9 (0.55-1.02) mg/dL Est Cr Clr Drug Dosing 71.40 mL/min Estimated GFR (MDRD) > 60 (>60) BUN/Creatinine Ratio 21.1 H (9-20) Glucose 80 (80-116) mg/dL Calcium 9.0 (8.6-10.2) mg/dL Magnesium 1.9 (1.8-2.5) mg/dL Meds: Medications Discontinued Medications Generic Name Dose Route Start Last Admin Trade Name Freq PRN Reason Stop Dose Admin Hydroxyzine Pamoate 50 mg 12/20/19 14:07 12/20/19 14:12 Vistaril PO 12/20/19 14:08 50 mg NOW STA Administration Lorazepam 2 mg 12/20/19 13:27 12/20/19 13:47 Ativan IM 2 mg ONETIME PRN Administration Anxiety Potassium Chloride 40 meq 12/20/19 14:07 12/20/19 14:12 Klor-Con M20 PO 12/20/19 14:08 40 meq ONETIME ONE Administration Departure - Departure Time of Disposition: 14:10 Disposition: Home, Self-Care 01 Condition: Good Clinical Impression: Anxiety, Hypokalemia - Discharge Information Prescriptions: hydrOXYzine pamoate [Vistaril] 50 mg PO Q6H PRN #30 cap PRN Reason: anxiety/nausea/sleep Potassium Chloride [Klor-Con M20] 40 meq PO Q2H #4 tab.er Instructions: Hypokalemia, Panic Attack, [id number] Referrals: Génesis Perry HEATER OPERATOR HELPER [Primary Care Provider] - Forms: ED Department Discharge Additional Instructions: please read discharge instructions on panic attack and anxiety take your xanax vistaril 50 mg every 6 hours as needed for anxiety, nausea,sleep klor con 20 meq, take 2 tablets every 2 hours for 2 doses follow up as needed Sepsis Event Note - Evaluation Sepsis Screening Result: No Definite Risk - Focused Exam Date Exam was Performed: 12/21/19 Time Exam was Performed: 05:40
== END 2019-12-20 14:28 | disposition home or self-care (01) ==
LOC: FB.ED 12:42
DX: F41.9 Anxiety disorder, unspecified (principal); E87.6 Hypokalemia; F32.9 Major depressive disorder, single episode, unspecified; G43.909 Migraine, unspecified, not intractable, without status migrainosus; Z88.8 Allergy status to other drugs, medicaments and biological substances; Z88.5 Allergy status to narcotic agent; Z91.041 Radiographic dye allergy status; Z79.899 Other long term (current) drug therapy
CPT/HCPCS: 36415; 80048; 83735; 96372; 99283; A9270; J2060

== ENCOUNTER 2020-06-10 00:17 | Emergency (ER) | payer MEDICARE, MEDICAID ==
[2020-06-10] MEDS ORDERED: Ketorolac 30 MG/ML SDV IVPUSH ONE (00:40)
[2020-06-10] MEDS ORDERED: Morphine 2 MG/ML SYRINGE IVPUSH ONE (00:41)
[2020-06-10] MEDS ORDERED: Cyclobenzaprine 10 MG Tab PO ONE (00:43)
--- NOTE | 2020-06-10 01:59 | EDM.PDOC ---
ED HPI GENERAL MEDICAL PROBLEM - General Chief Complaint: Lower Extremity Injury/Pain Stated Complaint: HIP Time Seen by Provider: 06/10/20 00:35 Source of Information: Reports: Patient History Limitations: Reports: No Limitations - History of Present Illness INITIAL COMMENTS - FREE TEXT/NARRATIVE: Patient presented to the ED because of a worsening chronic right hip pain. She t ook her [place] 10 mg and Toradol 10 mg po without significant relief. She denies any recent trauma or fall. Treatments DRUG COORDINATOR: Reports: Other Medication(s) Other Treatments DRUG COORDINATOR: toradol 10mg 10pm, 5mg Lortab 2 tabs 1800. right hip Pain Score (Numeric/FACES): 7 - Related Data Allergies Allergy/AdvReac Type Severity Reaction Status Date / Time gabapentin Allergy Headache Verified 12/20/19 13:04 oxycodone HCl [From Percocet] Allergy Itching Verified 12/20/19 13:04 tramadol Allergy Itching Verified 12/20/19 13:04 IV Dye Allergy Anaphylactic Uncoded 12/20/19 13:04 Shock Home Meds: Home Meds tiZANidine [Zanaflex] 4 mg PO TID PRN 03/09/16 [History] Ondansetron [Zofran ODT] 4 mg PO Q6H PRN #7 tab.dis 07/02/16 [Rx] Sertraline [Zoloft] 100 mg PO DAILY 07/02/16 [History] Acetaminophen/HYDROcodone [[place] 325-10 MG] 1 - 2 tab PO Q6H PRN #10 tab 01/27/17 [Rx] Diclofenac Sodium 75 mg PO BID 01/27/17 [History] rOPINIRole HCl [Requip] 1 mg PO BEDTIME 01/27/17 [History] Amphetamine/Dextroamphetamine [Adderall] 10 mg PO BID 12/05/17 [History] Eletriptan Hydrobromide [Eletriptan HBr] 40 mg PO DAILY PRN 08/10/18 [History] Ketorolac [Toradol] 10 mg PO TID PRN 08/10/18 [History] LORazepam [Ativan] 0.5 - 1 mg PO BID PRN 08/10/18 [History] Lidocaine 5% 1 applic TOP Q4H PRN 08/10/18 [History] Promethazine [Phenergan] 25 mg PO Q4H 08/10/18 [History] levonorgestreL [Kyleena] 1 each IY ASDIRECTED 08/10/18 [History] Potassium Chloride [Klor-Con M20] 40 meq PO Q2H #4 tab.er 12/20/19 [Rx] hydrOXYzine pamoate [Vistaril] 50 mg PO Q6H PRN #30 cap 12/20/19 [Rx] predniSONE [Prednisone] 40 mg PO DAILY #10 tablet 06/10/20 [Rx] Past Medical History HEENT History: Reports: Other (See Below) Other HEENT History: corneal abrasions Cardiovascular History: Reports: None Respiratory History: Reports: None Gastrointestinal History: Reports: Colon Polyp, Hemorrhoids, Irritable Bowel Syndrome Genitourinary History: Reports: UTI, 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 (See Below), Polycystic Ovaries, Other MOLD SHOP SUPERVISOR History: leep procedure, , cysts removed Musculoskeletal History: Reports: Fibromyalgia, Fracture Other Musculoskeletal History: patient states she had a 'bad' right knee, hx fracture L wrist, 'tear in R hip & elbow Neurological History: Reports: Migraines Psychiatric History: Reports: ADD, Anxiety, Depression, PTSD Endocrine/Metabolic History: Reports: None Hematologic History: Reports: None Immunologic History: Reports: None Oncologic (Cancer) History: Reports: Cervix Other Oncologic History: hx of stage 3 cervicaL [place] Dermatologic History: Reports: None - Infectious Disease History Infectious Disease History: Reports: Chicken Pox - Past Surgical History Head Surgeries/Procedures: Reports: None HEENT Surgical History: Reports: Oral Surgery GI Surgical History: Reports: Colonoscopy, EGD Female Surgical History: Reports: Breast Reduction Oncologic Surgical History: Reports: None Social & Family History - Family History Family Medical History: No Pertinent Family History - Tobacco Use Tobacco Use Status *Q: Never Tobacco User - Caffeine Use Caffeine Use: Reports: Soda, Tea - Recreational Drug Use Recreational Drug Use: No - Living Situation & Occupation Living situation: Reports: Occupation: Disabled Review of Systems - Review of Systems Review Of Systems: See Below Constitutional: Reports: No Symptoms Eyes: Reports: No Symptoms Ears: Reports: No Symptoms Nose: Reports: No Symptoms Mouth/Throat: Reports: No Symptoms Respiratory: Reports: No Symptoms Cardiovascular: Reports: No Symptoms GI/Abdominal: Reports: No Symptoms Genitourinary: Reports: No Symptoms Musculoskeletal: Reports: Other (rt hip pain) Skin: Reports: No Symptoms ED EXAM, GENERAL - Physical Exam Exam: See Below Exam Limited By: No Limitations General Appearance: Alert, No Apparent Distress Eye Exam: Bilateral Eye: PERRL Ears: Normal External Exam, Normal Canal Nose: Normal Inspection, Normal Mucosa Throat/Mouth: Normal Inspection, Normal Lips Head: Atraumatic, Normocephalic Neck: Normal Inspection, Supple, Non-Tender, Full Range of Motion Respiratory/Chest: No Respiratory Distress, Lungs Clear, Normal Breath Sounds Cardiovascular: Normal Peripheral Pulses, Regular Rate, Rhythm, No Edema, No Gallop GI/Abdominal: Normal Bowel Sounds, Soft, Non-Tender, No Organomegaly Back Exam: Normal Inspection, Full Range of Motion Extremities: Normal Inspection, Normal Range of Motion, Non-Tender, No Pedal Edema, Normal Capillary Refill Neurological: Other (RT hip tenderness) Course - Vital Signs Text/Narrative:: Toradol 30 mg IV Morphine 2 mg IV Flexeril 10 mg PO Last Recorded V/S: Last Vital Signs Temp 36.8 C 06/10/20 00:30 Pulse 76 06/10/20 00:30 Resp 18 06/10/20 00:30 BP 108/69 06/10/20 00:30 Pulse Ox 99 06/10/20 00:30 - Orders/Labs/Meds Meds: Medications Discontinued Medications Generic Name Dose Route Start Last Admin Trade Name Ge PRN Reason Stop Dose Admin Cyclobenzaprine HCl 10 mg 06/10/20 00:43 06/10/20 00:52 Flexeril PO 06/10/20 00:44 10 mg ONETIME ONE Administration Ketorolac Tromethamine 30 mg 06/10/20 00:40 06/10/20 00:54 Toradol IVPUSH 06/10/20 00:41 30 mg ONETIME ONE Administration Morphine Sulfate 2 mg 06/10/20 00:41 06/10/20 01:03 Morphine IVPUSH 06/10/20 00:42 2 mg ONETIME ONE Administration Departure - Departure Time of Disposition: 01:55 Disposition: Home, Self-Care 01 Condition: Good Clinical Impression: Chronic pain - Discharge Information Prescriptions: predniSONE [Prednisone] 40 mg PO DAILY #10 tablet Instructions: Chronic Pain, Adult Referrals: Génesis Perry NP [Primary Care Provider] - Forms: ED Department Discharge Additional Instructions: please read discharge instructions on chronic pain continue present meds take prednisone 20 mg, 2 tablets daily for 5 days follow up as needed Sepsis Event Note (ED) - Evaluation Sepsis Screening Result: No Definite Risk
== END 2020-06-10 02:07 | disposition home or self-care (01) ==
LOC: FB.ED 00:17
DX: G89.29 Other chronic pain (principal); M25.551 Pain in right hip; F41.9 Anxiety disorder, unspecified; F32.9 Major depressive disorder, single episode, unspecified; Z88.8 Allergy status to other drugs, medicaments and biological substances; Z88.5 Allergy status to narcotic agent; Z91.041 Radiographic dye allergy status; Z79.899 Other long term (current) drug therapy
CPT/HCPCS: 96374; 96375; 99283-25; A9270-GY; J1885; J2270

== ENCOUNTER 2020-10-19 14:31 | Emergency (ER) | payer MEDICARE, MEDICAID ==
--- NOTE | 2020-10-19 15:03 | EDM.PDOC ---
ED HPI GENERAL MEDICAL PROBLEM - General Chief Complaint: Lower Extremity Injury/Pain Stated Complaint: L KNEE Time Seen by Provider: 10/19/20 15:00 Source of Information: Reports: Patient History Limitations: Reports: No Limitations - History of Present Illness INITIAL COMMENTS - FREE TEXT/NARRATIVE: 40-year-old female who reports woke yesterday morning with some pain in her left knee. She reports that she does not remember any definite injury but has been walking up steps often and has had some twisting of the knee. The pain was okay with walking yesterday but was much worse with any twisting and the pain has progressively worsened since then. She reports the pain as a 2-3/10 now at rest but when she tries to walk he goes up to 5-6/10 and with certain twisting movements it goes up to a 10/10. It is a sharp pain with the more intense pains and it is a throbbing and aching pain otherwise. She points to the anterior medial knee area as the area of the pain. She does feel that there has been some swelling in this area. There is no redness or increased warmth. She has had no fevers or chills. There are no other joint pains. She has applied some lidocaine cream to the area with some relief of the pain. There are no other associated signs or symptoms. There are no other modifying factors. Onset: Other (Yesterday morning) Duration: Getting Worse Location: Reports: Lower Extremity, Left (Left knee) Quality: Reports: Ache, Sharp, Throbbing Severity: Moderate (to severe.) Improves with: Reports: Rest Worsens with: Reports: Other (Palpation), Movement (Particularly twisting.) Context: Reports: Other (As above.) Associated Symptoms: Reports: No Other Symptoms Treatments COMPUTER APPLICATIONS DEVELOPER: Reports: Other Medication(s) (Lidocaine cream) - Related Data Allergies Allergy/AdvReac Type Severity Reaction Status Date / Time gabapentin Allergy Headache Verified 10/19/20 16:23 oxycodone HCl [From Percocet] Allergy Itching Verified 10/19/20 16:23 tramadol Allergy Itching Verified 10/19/20 16:23 IV Dye Allergy Anaphylactic Uncoded 12/20/19 13:04 Shock Home Meds: Home Meds tiZANidine [Zanaflex] 4 mg PO TID PRN 03/09/16 [History] Sertraline [Zoloft] 100 mg PO DAILY 07/02/16 [History] Diclofenac Sodium 75 mg PO BID 01/27/17 [History] rOPINIRole HCl [Requip] 1 mg PO BEDTIME 01/27/17 [History] Amphetamine/Dextroamphetamine [Adderall] 10 mg PO BID 12/05/17 [History] Eletriptan Hydrobromide [Eletriptan HBr] 40 mg PO DAILY PRN 08/10/18 [History] LORazepam [Ativan] 0.5 - 1 mg PO BID PRN 08/10/18 [History] Lidocaine 5% 1 applic TOP Q4H PRN 08/10/18 [History] Promethazine [Phenergan] 25 mg PO Q4H 08/10/18 [History] levonorgestreL [Kyleena] 1 each IY ASDIRECTED 08/10/18 [History] Past Medical History Gastrointestinal History: Reports: Colon Polyp, Hemorrhoids, Irritable Bowel Syndrome Genitourinary History: Reports: UTI, 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: Polycystic Ovaries, Other (See Below) Other ACTUARIAL SCIENCE PROFESSOR History: leep procedure, , cysts removed Musculoskeletal History: Reports: Fibromyalgia, Fracture Other Musculoskeletal History: patient states she had a 'bad' right knee, hx fracture L wrist, 'tear in R hip & elbow Neurological History: Reports: Migraines Psychiatric History: Reports: ADD, Anxiety, Depression, PTSD Oncologic (Cancer) History: Reports: Cervix Other Oncologic History: hx of stage 3 cervicaL [place] - Infectious Disease History Infectious Disease History: Reports: Chicken Pox - Past Surgical History HEENT Surgical History: Reports: Oral Surgery GI Surgical History: Reports: Colonoscopy, EGD Female Surgical History: Reports: Breast Reduction, Cystectomy (Laparoscopic ovarian cystectomy), LEEP (2) Social & Family History - Tobacco Use Tobacco Use Status *Q: Current Every Day Tobacco User - Caffeine Use Caffeine Use: Reports: Soda, Tea - Alcohol Use Alcohol Use History: Yes Alcohol Use Frequency: Monthly (Maybe every 2 weeks.) - Living Situation & Occupation Living situation: Reports: Occupation: Disabled Review of Systems - Review of Systems Review Of Systems: See Below Constitutional: Reports: No Symptoms Eyes: Reports: No Symptoms Ears: Reports: No Symptoms Nose: Reports: No Symptoms Mouth/Throat: Reports: No Symptoms Respiratory: Reports: No Symptoms Cardiovascular: Reports: No Symptoms GI/Abdominal: Reports: No Symptoms Genitourinary: Reports: No Symptoms Musculoskeletal: Reports: Joint Pain (Left knee pain) Skin: Reports: No Symptoms Neurological: Reports: No Symptoms Psychiatric: Reports: No Symptoms ED EXAM, GENERAL - Physical Exam Exam: See Below Exam Limited By: No Limitations General Appearance: Alert, WD/WN, Mild Distress (Appears in some pain. She is nontoxic.) Eye Exam: Bilateral Eye: EOMI, Normal Inspection Ears: Normal External Exam, Hearing Grossly Normal Ear Exam: Bilateral Ear: Auricle Normal Nose: Normal Inspection, Normal Mucosa, No Blood Throat/Mouth: Normal Inspection, Normal Lips, Normal Oropharynx, Normal Voice, No Airway Compromise Head: Atraumatic, Normocephalic Neck: Normal Inspection, Supple, Non-Tender, Full Range of Motion Respiratory/Chest: No Respiratory Distress, Lungs Clear, Normal Breath Sounds, No Accessory Muscle Use, Chest Non-Tender Cardiovascular: Normal Peripheral Pulses, Regular Rate, Rhythm, No Murmur Peripheral Pulses: 2+: Dorsalis Pedis (L), Dorsalis Pedis (R) GI/Abdominal: Normal Bowel Sounds, Soft, Non-Tender, No Mass Back Exam: Normal Inspection Extremities: Normal Range of Motion (Despite pain.), No Pedal Edema, Normal Capillary Refill, Other (Tenderness along the medial joint line of the left knee. There is no ligamentous laxity. Negative Hemant's). No: Joint Swelling Neurological: Alert, Oriented, CN II-XII Intact, Normal Cognition, No Motor/Sensory Deficits Psychiatric: Normal Affect Skin Exam: Warm, Dry, Intact, Normal Color, No Rash Course - Vital Signs Last Recorded V/S: Last Vital Signs Temp 36.1 C 10/19/20 14:35 Pulse 66 10/19/20 14:35 Resp 18 10/19/20 14:35 BP 111/79 10/19/20 14:35 Pulse Ox 100 10/19/20 14:35 - Orders/Labs/Meds Orders: Active Orders 24 hr Category Date Time Status Knee 3V Lt [CR] Stat Exams 10/19/20 15:16 Taken - Radiology Interpretation Free Text/Narrative:: X-ray of left knee shows no fracture or malalignment. - Re-Assessments/Exams Free Text/Narrative Re-Assessment/Exam: 10/19/20 17:00: The patient and felt that she needed something to eat and was given a snack. She remains hemodynamically stable. Left knee x-ray shows no definite abnormality. I suspect this could be a meniscus injury and I will have the nursing staff give the patient crutches and apply an Flaquito wrap to her left knee. She will need to follow-up with her primary provider and may need orthopedic referral. She can take ibuprofen and Tylenol as needed for pain. Departure - Departure Time of Disposition: 17:10 Disposition: Home, Self-Care 01 Condition: Good Clinical Impression: Left knee pain Qualifiers: Chronicity: acute Qualified Code(s): M25.562 - Pain in left knee - Discharge Information Instructions: Crutch Use, Adult, [id number], Acute Knee Pain, Adult, [id number] Referrals: Génesis Perry ASSURANCE SENIOR MANAGER INSURANCE [Primary Care Provider] - Forms: ED Department Discharge Additional Instructions: The x-ray of your knee showed no fracture or any definite abnormalities. Use the crutches with no weightbearing on your left leg for now. Use the Flaquito wrap for comfort and support. You can take ibuprofen and Tylenol as needed for pain. Up with your primary provider as you have scheduled this coming week. Back to the emergency department for redness, increased swelling, fever or any other concerning signs or symptoms. Sepsis Event Note (ED) - Focused Exam Vital Signs: Vital Signs Temp Pulse Resp BP Pulse Ox 10/19/20 14:35 36.1 C 66 18 111/79 100 - My Orders Last 24 Hours: My Active Orders 10/19/20 15:16 Knee 3V Lt [CR] Stat - Assessment/Plan Last 24 Hours: My Active Orders 10/19/20 15:16 Knee 3V Lt [CR] Stat
--- NOTE | 2020-10-20 11:43 | CR ---
INDICATION: Left knee pain, status post twisting. LEFT KNEE: Four images of the left knee were obtained in frontal, lateral, and patellar sunrise views 10/19/20 - no comparisons. Femorotibial and patellofemoral joints appear to be intact without a definite acute process such as a joint effusion, fracture or dislocation. Bone density appeared to be normal. IMPRESSION: Essentially normal appearing left knee. If symptoms persist - if occult abnormality is suspected clinically, additional examination such as MRI or possibly repeat x-rays may be helpful. JOSED
== END 2020-10-19 17:30 | disposition home or self-care (01) ==
LOC: FB.ED 14:31
DX: M25.562 Pain in left knee (principal); Z88.8 Allergy status to other drugs, medicaments and biological substances; Z88.5 Allergy status to narcotic agent; Z91.041 Radiographic dye allergy status; Z79.899 Other long term (current) drug therapy; Z72.0 Tobacco use
CPT/HCPCS: 73562-LT; 99283-25

== ENCOUNTER 2021-05-19 21:32 | Emergency (ER) | payer MEDICARE, MEDICAID ==
[2021-05-19] MEDS ORDERED: Sodium Chloride 0.9% 10 ML Syringe FLUSH PRN (21:55)
[2021-05-19] MEDS ORDERED: Ketorolac 30 MG/ML SDV IVPUSH ONE (21:55)
[2021-05-19] MEDS ORDERED: Morphine 4 MG/ML VIAL IVPUSH ONE (21:55)
[2021-05-19] MEDS ORDERED: Sodium Chloride 0.9% 1,000 ML IV SCH (22:00)
[2021-05-19] MEDS ORDERED: Iopamidol 755 Mg/ML 75 ML Bottle IV ONE (22:10)
[2021-05-19] MEDS ORDERED: Acetaminophen/oxyCODONE 325-5 MG Tab PO STA (23:51)
[2021-05-19] MEDS ORDERED: Tamsulosin 0.4 MG Cap.ER PO STA (23:51)
--- NOTE | 2021-05-19 23:58 | EDM.PDOC ---
ED HPI GENERAL MEDICAL PROBLEM - General Chief Complaint: Abdominal Pain Stated Complaint: left side ovarian pain Time Seen by Provider: 05/19/21 21:40 Source of Information: Reports: Patient History Limitations: Reports: No Limitations - History of Present Illness INITIAL COMMENTS - FREE TEXT/NARRATIVE: Patient presented to the ED because of left sided abdominal pain. The pain is sharp,10/10, there is no associated N/V, changes in bowel movements or urinary s/s. No fever, chills, cough or cold symptoms. She took her lortab and toradol wihout relief. left lower abdominal Pain Score (Numeric/FACES): 0 - Related Data Allergies Allergy/AdvReac Type Severity Reaction Status Date / Time gabapentin Allergy Headache Verified 10/19/20 16:23 oxycodone HCl [From Percocet] Allergy Itching Verified 10/19/20 16:23 tramadol Allergy Itching Verified 10/19/20 16:23 IV Dye Allergy Anaphylactic Uncoded 12/20/19 13:04 Shock Home Meds: Home Meds tiZANidine [Zanaflex] 4 mg PO TID PRN 03/09/16 [History] Sertraline [Zoloft] 100 mg PO DAILY 07/02/16 [History] Diclofenac Sodium 75 mg PO BID 01/27/17 [History] rOPINIRole HCl [Requip] 1 mg PO BEDTIME 01/27/17 [History] Amphetamine/Dextroamphetamine [Adderall] 10 mg PO BID 12/05/17 [History] Eletriptan Hydrobromide [Eletriptan HBr] 40 mg PO DAILY PRN 08/10/18 [History] LORazepam [Ativan] 0.5 - 1 mg PO BID PRN 08/10/18 [History] Lidocaine 5% 1 applic TOP Q4H PRN 08/10/18 [History] Promethazine [Phenergan] 25 mg PO Q4H 08/10/18 [History] levonorgestreL [Kyleena] 1 each IY ASDIRECTED 08/10/18 [History] Tamsulosin [Tamsulosin 24 Hr] 0.4 mg PO DAILY #10 cap.er 05/19/21 [Rx] Past Medical History HEENT History: Reports: Other (See Below) Other HEENT History: corneal abrasions Cardiovascular History: Reports: None Respiratory History: Reports: None Gastrointestinal History: Reports: Colon Polyp, Hemorrhoids, Irritable Bowel Syndrome Genitourinary History: Reports: UTI, 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: Polycystic Ovaries, Other (See Below) 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 SUPERVISOR 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: 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 procedure, , cysts removed Musculoskeletal History: Reports: Fibromyalgia, Fracture Other Musculoskeletal History: patient states she had a 'bad' right knee, hx fracture L wrist, 'tear in R hip & elbow Neurological History: Reports: Migraines Psychiatric History: Reports: ADD, Anxiety, Depression, PTSD Endocrine/Metabolic History: Reports: None Hematologic History: Reports: None Immunologic History: Reports: None Oncologic (Cancer) History: Reports: Cervix Other Oncologic History: hx of stage 3 cervicaL [place] Dermatologic History: Reports: None - Infectious Disease History Infectious Disease History: Reports: Chicken Pox - Past Surgical History Head Surgeries/Procedures: Reports: None HEENT Surgical History: Reports: Oral Surgery GI Surgical History: Reports: Colonoscopy, EGD Female Surgical History: Reports: Breast Reduction, Cystectomy, LEEP Neurological Surgical History: Reports: None Musculoskeletal Surgical History: Reports: None Oncologic Surgical History: Reports: None Social & Family History - Family History Family Medical History: No Pertinent Family History - Tobacco Use Tobacco Use Status *Q: Current Every Day Tobacco User Years of Tobacco use: 1 Packs/Tins Daily: 1 - Caffeine Use Caffeine Use: Reports: Coffee, Soda - Recreational Drug Use Recreational Drug Use: No - Living Situation & Occupation Living situation: Reports: Occupation: Disabled ED ROS GENERAL - Review of Systems Review Of Systems: See Below Constitutional: Reports: No Symptoms HEENT: Reports: No Symptoms Respiratory: Reports: No Symptoms Cardiovascular: Reports: No Symptoms Endocrine: Reports: No Symptoms GI/Abdominal: Reports: Abdominal Pain : Reports: No Symptoms Musculoskeletal: Reports: No Symptoms Skin: Reports: No Symptoms Neurological: Reports: No Symptoms Psychiatric: Reports: No Symptoms ED EXAM, GI/ABD - Physical Exam Exam: See Below Exam Limited By: No Limitations General Appearance: Alert, No Apparent Distress Ears: Normal External Exam, Normal Canal, Hearing Grossly Normal, Normal TMs Nose: Normal Inspection, Normal Mucosa, No Blood Throat/Mouth: Normal Inspection, Normal Lips, Normal Teeth Head: Atraumatic, Normocephalic Neck: Normal Inspection, Supple, Non-Tender, Full Range of Motion Respiratory/Chest: No Respiratory Distress, Lungs Clear, Normal Breath Sounds, No Accessory Muscle Use, Chest Non-Tender Cardiovascular: Normal Peripheral Pulses, Regular Rate, Rhythm, No Edema, No Gallop, No JVD, No Murmur, No Rub GI/Abdominal Exam: Normal Bowel Sounds, Soft, No Organomegaly, Other (LLQ tenderness) Back Exam: Normal Inspection, Full Range of Motion Extremities: Normal Inspection, Normal Range of Motion, Non-Tender, No Pedal Edema, Normal Capillary Refill Neurological: Alert, Oriented, CN II-XII Intact, Normal Cognition, Normal Gait, Normal Reflexes, No Motor/Sensory Deficits Course - Vital Signs Text/Narrative:: Lab/CT abd-pelvis result was reviewed and discussed with patient NS 1 L bolus Morphine 4 mg IV x1 Toradol 30 mg IV x1 [place] 5 mg, 2 PO x1 Flomax 0.4 mg PO x1 Last Recorded V/S: Last Vital Signs Temp 36.4 C 05/19/21 21:35 Pulse 66 05/19/21 23:50 Resp 18 05/19/21 23:50 BP 140/74 05/19/21 23:50 Pulse Ox 100 05/19/21 23:50 - Orders/Labs/Meds Labs: Laboratory Tests 05/19/21 05/19/21 05/19/21 Range/Units 22:05 22:05 22:05 WBC 6.6 (3.0-10.3) x10-3/uL RBC 4.60 (3.60-5.20) x10(6)uL Hgb 13.7 (11.4-15.5) g/dL Hct 40.9 (34.2-48.2) % MCV 88.9 (76.7-100.5) fL MCH 29.8 (23.9-33.9) pg MCHC 33.5 (31.9-34.8) g/dL RDW 12.7 (12.3-16.5) % Plt Count 220 (151-488) x10(3)uL MPV 9.1 (7.1-12.4) fL Neut % (Auto) 46.4 (30.8-76.2) % Lymph % (Auto) 44.0 (18.4-52.1) % [place] % (Auto) 6.1 (4.4-15.7) % Eos % (Auto) 2.9 (0.6-8.1) % Baso % (Auto) 0.6 (0.2-1.5) % Neut # (Auto) 3.1 (1.5-6.3) x10-3/uL Lymph # (Auto) 2.9 (1.0-4.4) x10-3/uL [place] # (Auto) 0.4 (0.3-1.0) x10-3/uL Eos # (Auto) 0.2 (0.0-0.8) x10-3/uL Baso # (Auto) 0.0 (0.0-0.1) x10-3/uL Sodium 139 (135-145) mmol/L Potassium 3.6 (3.5-5.3) mmol/L Chloride 105 (100-110) mmol/L Carbon Dioxide 21 (21-32) mmol/L BUN 11 (7-18) mg/dL Creatinine 1.0 (0.55-1.02) mg/dL Est Cr Clr Drug Dosing 62.97 mL/min Estimated GFR (MDRD) > 60 (>60) BUN/Creatinine Ratio 11.0 (9-20) Glucose 92 (80-116) mg/dL Calcium 8.6 (8.6-10.2) mg/dL Total Bilirubin 1.1 (0.1-1.3) mg/dL AST 16 (5-25) IU/L ALT 27 (12-36) U/L Alkaline Phosphatase 81 (56-112) IU/L Total Protein 7.2 (6.0-8.0) g/dL Albumin 3.9 (3.5-5.2) g/dL Globulin 3.3 g/dL Albumin/Globulin Ratio 1.2 Amylase 55 (25-115) U/L Lipase 130 (73-393) U/L Meds: Medications Discontinued Medications Generic Name Dose Route Start Last Admin Trade Name Freq PRN Reason Stop Dose Admin Sodium Chloride 1,000 mls @ 999 mls/hr 05/19/21 22:00 05/19/21 22:45 Normal Saline IV 999 mls/hr ASDIRECTED TOMMIE Administration Iopamidol 75 ml 05/19/21 22:10 05/19/21 22:11 Iopamidol 755 Mg/Ml 75 Ml Bottle IV 05/19/21 22:11 Not Given ASDIRECTED ONE Ketorolac Tromethamine 30 mg 05/19/21 21:55 05/19/21 22:05 Ketorolac 30 Mg/Ml Sdv IVPUSH 05/19/21 21:56 30 mg ONETIME ONE Administration Morphine Sulfate 4 mg 05/19/21 21:55 05/19/21 22:00 Morphine 4 Mg/Ml Vial IVPUSH 05/19/21 21:56 4 mg ONETIME ONE Administration Oxycodone/Acetaminophen 2 tab 05/19/21 23:51 05/20/21 00:00 Acetaminophen/Oxycodone 325-5 Mg Tab PO 05/19/21 23:52 Not Given NOW STA Sodium Chloride 10 ml 05/19/21 21:55 Sodium Chloride 0.9% 10 Ml Syringe FLUSH ASDIRECTED PRN Keep Vein Open Tamsulosin HCl 0.4 mg 05/19/21 23:51 05/20/21 00:00 Tamsulosin 0.4 Mg Cap.Er PO 05/19/21 23:52 0.4 mg NOW STA Administration Departure - Departure Time of Disposition: 00:00 Disposition: Home, Self-Care 01 Condition: Good Clinical Impression: Nephrolithiasis - Discharge Information Prescriptions: Tamsulosin [Tamsulosin 24 Hr] 0.4 mg PO DAILY #10 cap.er Instructions: Kidney Stones, [id number], Tamsulosin capsules Referrals: PCP,None [Primary Care Provider] - Forms: ED Department Discharge Additional Instructions: Please read discharge instructions on kidney stones Drink 2-3 liters of water daily Zofran ODT as prescribed for nausea and hydrocodone as needed for pain Flomax 1 tablet daily for 10 days follow up with your doctor after 5 days if pain persist Sepsis Event Note (ED) - Evaluation Sepsis Screening Result: No Definite Risk
== END 2021-05-20 00:15 | disposition home or self-care (01) ==
LOC: FB.ED 21:32
DX: N13.2 Hydronephrosis with renal and ureteral calculous obstruction (principal); Z72.0 Tobacco use; Z88.5 Allergy status to narcotic agent; Z91.041 Radiographic dye allergy status; Z88.8 Allergy status to other drugs, medicaments and biological substances; Z79.899 Other long term (current) drug therapy
CPT/HCPCS: 36415; 74176; 80053; 82150; 83690; 85025; 96374; 96375; 99284; A9270; J1885; J2270; J7030

== ENCOUNTER 2021-08-22 00:31 | Emergency (ER) | payer MEDICARE, MEDICAID ==
[2021-08-22] MEDS ORDERED: Ketorolac 30 MG/ML SDV IVPUSH ONE (01:08)
[2021-08-22] MEDS ORDERED: Ondansetron 4 MG/2 ML SDV IVPUSH ONE (01:08)
[2021-08-22] MEDS ORDERED: Sodium Chloride 0.9% 1,000 ML IV ONE (01:08)
[2021-08-22] MEDS ORDERED: Sodium Chloride 0.9% 10 ML Syringe FLUSH PRN (01:08)
[2021-08-22] MEDS ORDERED: Morphine 4 MG/ML VIAL IVPUSH ONE (02:05)
[2021-08-22] MEDS ORDERED: Tamsulosin 0.4 MG Cap.ER PO ONE (03:03)
== END 2021-08-22 03:33 | disposition home or self-care (01) ==
LOC: FB.ED 00:31
DX: E86.0 Dehydration (principal); N23 Unspecified renal colic; Z72.0 Tobacco use; Z88.5 Allergy status to narcotic agent; Z88.6 Allergy status to analgesic agent; Z91.041 Radiographic dye allergy status; Z79.899 Other long term (current) drug therapy
CPT/HCPCS: 36415; 80048; 81001; 81025; 85025; 86140; 87086; 96374; 96375; 99284; A9270; J1885; J2270; J2405; J7030

== ENCOUNTER 2021-09-26 04:05 | Emergency (ER) | payer MEDICARE, MEDICAID ==
[2021-09-26] MEDS: Sodium Chloride 0.9% 1,000 ML IV ONE (04:20)
[2021-09-26] MEDS: Ondansetron 4 MG/2 ML SDV IVPUSH ONE (04:25)
[2021-09-26] MEDS: Pantoprazole 40 MG Vial IVPUSH ONE (05:17)
[2021-09-26] MEDS: Sodium Chloride 0.9% 1,000 ML IV SCH (05:34)
[2021-09-26] MEDS: methylPREDNISolone Sodium Succinate 125 MG/2 ML SDV IVPUSH ONE (08:17)
[2021-09-26] MEDS: Tamsulosin 0.4 MG Cap.ER PO ONE (08:17)
[2021-09-26] MEDS: Ketorolac 30 MG/ML SDV IVPUSH ONE (08:17)
== END 2021-09-26 08:48 | disposition home or self-care (01) ==
LOC: FB.ED 04:05
DX: N20.0 Calculus of kidney (principal); K29.70 Gastritis, unspecified, without bleeding; E86.0 Dehydration; Z88.5 Allergy status to narcotic agent; Z91.041 Radiographic dye allergy status; Z79.899 Other long term (current) drug therapy; Z72.0 Tobacco use
CPT/HCPCS: 36415; 74176; 80053; 80307; 81001; 85025; 96374; 96375; 99282; 99284-25; A9270-GY; C9113; J1885; J2405; J2930; J7030

== ENCOUNTER 2021-12-19 23:16 | Emergency (ER) | payer MEDICARE, MEDICAID ==
[2021-12-19] MEDS ORDERED: Ketorolac 30 MG/ML SDV IVPUSH ONE (23:42)
[2021-12-19] MEDS ORDERED: Ondansetron 4 MG/2 ML SDV IVPUSH ONE (23:45)
[2021-12-19] MEDS ORDERED: Sodium Chloride 0.9% 10 ML Syringe FLUSH PRN (23:59)
== END 2021-12-20 00:45 | disposition home or self-care (01) ==
LOC: FB.ED 23:16
DX: M25.551 Pain in right hip (principal); Q65.01 Congenital dislocation of right hip, unilateral; Z79.899 Other long term (current) drug therapy; Z88.5 Allergy status to narcotic agent; Z88.8 Allergy status to other drugs, medicaments and biological substances; Z91.041 Radiographic dye allergy status
CPT/HCPCS: 96374; 96375; 99283; J1885; J2405; J3490

== ENCOUNTER 2022-03-17 21:35 | Emergency (ER) | payer MEDICARE, MEDICAID ==
[2022-03-17 23:03] LABS: ESTIMATED GFR 26 mL/min (>60)
[2022-03-17] MEDS ORDERED: Sodium Chloride 0.9% 10 ML Syringe FLUSH PRN (23:21)
[2022-03-17] MEDS ORDERED: Sodium Chloride 0.9% 1,000 ML IV SCH ×2 (23:30)
== END 2022-03-18 05:05 | disposition home or self-care (01) ==
LOC: FB.ED 21:35
DX: N17.9 Acute kidney failure, unspecified (principal); E86.0 Dehydration; F19.10 Other psychoactive substance abuse, uncomplicated; Z88.6 Allergy status to analgesic agent; Z91.041 Radiographic dye allergy status; Z88.5 Allergy status to narcotic agent; Z88.8 Allergy status to other drugs, medicaments and biological substances; F41.9 Anxiety disorder, unspecified; F32.A Depression, unspecified
CPT/HCPCS: 36415; 80053; 80307; 85025; 96360; 96361; 99284-25; J3490; J7030

== ENCOUNTER 2022-10-31 15:01 | Emergency (ER) | payer MEDICARE, MEDICAID | END 2022-10-31 15:32 | disposition left against medical advice (07) | LOC: FB.ED 15:01 | DX: M25.551 Pain in right hip (principal); Z88.5 Allergy status to narcotic agent; Z91.041 Radiographic dye allergy status; Z88.8 Allergy status to other drugs, medicaments and biological substances; Z79.899 Other long term (current) drug therapy | CPT/HCPCS: 99283; 99284 ==

== ENCOUNTER 2023-05-07 02:35 | Emergency (ER) | payer MEDICARE, MEDICAID ==
[2023-05-07 03:50] LABS: BASOPHILS PERCENT AUTO 0.6 % (0.2-1.5); EOSINOPHILS ABSOLUTE AUTO 0.2 x10-3/uL (0.0-0.8); EOSINOPHILS PERCENT AUTO 2.9 % (0.6-8.1); HEMATOCRIT 40.1 % (34.2-48.2); HEMOGLOBIN 13.8 g/dL (11.4-15.5); LYMPHOCYTES ABSOLUTE AUTO 2.2 x10-3/uL (1.0-4.4); LYMPHOCYTES PERCENT AUTO 35.8 % (18.4-52.1); MEAN CORPUSCULAR HEMOGLOBIN 31.2 pg (23.9-33.9); MEAN CORPUSCULAR HGB CONC 34.6 g/dL (31.9-34.8); MEAN CORPUSCULAR VOLUME 90.3 fL (76.7-100.5); MEAN PLATELET VOLUME 9.3 fL (7.1-12.4); MONOCYTES ABSOLUTE AUTO 0.4 x10-3/uL (0.3-1.0); NEUTROPHILS ABSOLUTE AUTO 3.3 x10-3/uL (1.5-6.3); NEUTROPHILS PERCENT AUTO 54.7 % (30.8-76.2); PLATELET COUNT,PLT 207 x10(3)uL (151-488); RED BLOOD CELL COUNT 4.43 x10(6)uL (3.60-5.20); RED CELL DISTRIBUTION WIDTH 12.9 % (12.3-16.5); WHITE BLOOD CELL COUNT,WBC 6.1 x10-3/uL (3.0-10.3)
[2023-05-07 03:55] LABS: BLOOD UREA NITROGEN,BUN 17 mg/dL (7-18); BUN/CREATININE RATIO 21.3 (9-20); CALCIUM 9.1 mg/dL (8.6-10.2); CARBON DIOXIDE,CO2 27 mmol/L (21-32); CHLORIDE,CL 106 mmol/L (100-110); CREATININE 0.8 mg/dL (0.55-1.02); EST CRCL DRUG DOSING (CG) 79.04 mL/min; ESTIMATED GFR 93 mL/min (>60); GLUCOSE RANDOM 83 mg/dL (80-116); SODIUM,NA 139 mmol/L (135-145)
[2023-05-07 04:03] LABS: ALANINE AMINOTRANSFERASE,ALT 24 U/L (12-36); ALBUMIN 3.5 g/dL (3.5-5.2); ALKALINE PHOSPHATASE 80 IU/L (56-112); ASPARTATE AMNIOTRANSFERASE,AST 15 IU/L (5-25); BILIRUBIN TOTAL 0.4 mg/dL (0.1-1.3); MAGNESIUM 1.8 mg/dL (1.8-2.5); PROTEIN TOTAL,TP 7.1 g/dL (6.0-8.0)
[2023-05-07 04:03] LABS: BILIRUBIN,URINE NEGATIVE (NEGATIVE); GLUCOSE,URINE NORMAL (NORMAL); KETONES,URINE NEGATIVE (NEGATIVE); LEUKOCYTE ESTERASE,URINE SMALL (NEGATIVE); NITRITE,URINE NEGATIVE (NEGATIVE); OCCULT BLOOD,URINE MODERATE (NEGATIVE); PROTEIN,URINE NEGATIVE (NEGATIVE); UROBILINOGEN,URINE NORMAL (NEGATIVE)
[2023-05-07 04:06] LABS: APPEARANCE,URINE CLOUDY (CLEAR); BACTERIA,URINE MANY (NS); COLOR,URINE YELLOW (YELLOW); SQUAMOUS EPITHELIAL CELLS,UR MODERATE (NS,R,O)
[2023-05-07] MEDS ORDERED: Ketorolac 30 MG/ML SDV IM ONE (05:49)
[2023-05-07] MEDS ORDERED: Sulfamethoxazole/Trimethoprim 800-160 MG Tab PO ONE (06:22)
== END 2023-05-07 07:01 | disposition home or self-care (01) ==
LOC: FB.ED 02:35
DX: N39.0 Urinary tract infection, site not specified (principal); R31.9 Hematuria, unspecified; F17.210 Nicotine dependence, cigarettes, uncomplicated; Z79.899 Other long term (current) drug therapy; Z88.8 Allergy status to other drugs, medicaments and biological substances; Z88.5 Allergy status to narcotic agent; Z91.041 Radiographic dye allergy status
CPT/HCPCS: 36415; 74176; 80053; 81001; 83735; 85025; 87086; 96372; 99284; A9270; J1885

== ENCOUNTER 2023-06-03 13:10 | Emergency (ER) | payer MEDICARE, MEDICAID ==
[2023-06-03] MEDS ORDERED: Ondansetron 4 MG/2 ML SDV IVPUSH ONE (13:22)
[2023-06-03] MEDS: Sodium Chloride 0.9% 10 ML Syringe FLUSH PRN ×3 (13:25→13:51)
[2023-06-03] MEDS ORDERED: Sodium Chloride 0.9% 1,000 ML IV SCH (13:30)
[2023-06-03 13:37] LABS: BASOPHILS PERCENT AUTO 0.6 % (0.2-1.5); EOSINOPHILS ABSOLUTE AUTO 0.2 x10-3/uL (0.0-0.8); EOSINOPHILS PERCENT AUTO 2.1 % (0.6-8.1); HEMATOCRIT 43.9 % (34.2-48.2); HEMOGLOBIN 15.2 g/dL (11.4-15.5); LYMPHOCYTES PERCENT AUTO 34.7 % (18.4-52.1); MEAN CORPUSCULAR HEMOGLOBIN 30.9 pg (23.9-33.9); MEAN CORPUSCULAR HGB CONC 34.6 g/dL (31.9-34.8); MEAN CORPUSCULAR VOLUME 89.3 fL (76.7-100.5); MONOCYTES ABSOLUTE AUTO 0.3 x10-3/uL (0.3-1.0); MONOCYTES PERCENT AUTO 3.9 % (4.4-15.7); NEUTROPHILS PERCENT AUTO 58.7 % (30.8-76.2); PLATELET COUNT,PLT 241 x10(3)uL (151-488); RED BLOOD CELL COUNT 4.91 x10(6)uL (3.60-5.20); RED CELL DISTRIBUTION WIDTH 12.6 % (12.3-16.5); WHITE BLOOD CELL COUNT,WBC 8.6 x10-3/uL (3.0-10.3)
[2023-06-03 13:41] LABS: BLOOD UREA NITROGEN,BUN 20 mg/dL (7-18); CALCIUM 9.5 mg/dL (8.6-10.2); CARBON DIOXIDE,CO2 23 mmol/L (21-32); CHLORIDE,CL 101 mmol/L (100-110); ESTIMATED GFR 71 mL/min (>60); GLUCOSE RANDOM 118 mg/dL (80-116); POTASSIUM,K 2.9 mmol/L (3.5-5.3); SODIUM,NA 139 mmol/L (135-145)
[2023-06-03] MEDS ORDERED: Morphine 4 MG/ML VIAL IVPUSH ONE (13:43)
[2023-06-03] MEDS ORDERED: Ketorolac 30 MG/ML SDV IVPUSH ONE (13:44)
[2023-06-03 13:47] LABS: A/G RATIO 1.1; ALANINE AMINOTRANSFERASE,ALT 20 U/L (12-36); ALKALINE PHOSPHATASE 62 IU/L (56-112); AMYLASE 58 U/L (25-115); ASPARTATE AMNIOTRANSFERASE,AST 16 IU/L (5-25); BILIRUBIN TOTAL 1.9 mg/dL (0.1-1.3); PROTEIN TOTAL,TP 7.8 g/dL (6.0-8.0)
[2023-06-03] MEDS ORDERED: Acetaminophen/HYDROcodone 325-5 MG Tab PO ONE (15:16)
== END 2023-06-03 15:28 | disposition home or self-care (01) ==
LOC: FB.ED 13:10
DX: N13.2 Hydronephrosis with renal and ureteral calculous obstruction (principal); E87.6 Hypokalemia; Z79.899 Other long term (current) drug therapy; Z91.041 Radiographic dye allergy status; Z88.1 Allergy status to other antibiotic agents; Z88.5 Allergy status to narcotic agent
CPT/HCPCS: 74176; 80053; 82150; 83690; 85025; 99284; A9270; J1885; J2270; J2405; J3490; J7030; 96361; 96374; 96375

== ENCOUNTER 2023-10-23 09:57 | Emergency (ER) | payer MEDICARE, MEDICAID ==
[2023-10-23] MEDS ORDERED: Naloxone 0.4 MG/ML SDV IVPUSH PRN (10:18)
[2023-10-23 10:30] LABS: BASOPHILS PERCENT AUTO 0.7 % (0.2-1.5); EOSINOPHILS ABSOLUTE AUTO 0.3 x10-3/uL (0.0-0.8); EOSINOPHILS PERCENT AUTO 4.9 % (0.6-8.1); HEMATOCRIT 43.8 % (34.2-48.2); HEMOGLOBIN 14.4 g/dL (11.4-15.5); LYMPHOCYTES ABSOLUTE AUTO 2.6 x10-3/uL (1.0-4.4); LYMPHOCYTES PERCENT AUTO 40.3 % (18.4-52.1); MEAN CORPUSCULAR HGB CONC 32.9 g/dL (31.9-34.8); MEAN PLATELET VOLUME 9.3 fL (7.1-12.4); MONOCYTES ABSOLUTE AUTO 0.2 x10-3/uL (0.3-1.0); MONOCYTES PERCENT AUTO 2.8 % (4.4-15.7); NEUTROPHILS ABSOLUTE AUTO 3.3 x10-3/uL (1.5-6.3); NEUTROPHILS PERCENT AUTO 51.3 % (30.8-76.2); PLATELET COUNT,PLT 177 x10(3)uL (151-488); RED BLOOD CELL COUNT 4.81 x10(6)uL (3.60-5.20); RED CELL DISTRIBUTION WIDTH 12.6 % (12.3-16.5); WHITE BLOOD CELL COUNT,WBC 6.4 x10-3/uL (3.0-10.3)
[2023-10-23] MEDS: Sodium Chloride 0.9% 10 ML Syringe FLUSH PRN (10:30)
[2023-10-23 10:34] LABS: BLOOD UREA NITROGEN,BUN 23 mg/dL (7-18); BUN/CREATININE RATIO 20.9 (9-20); CARBON DIOXIDE,CO2 22 mmol/L (21-32); CHLORIDE,CL 105 mmol/L (100-110); CREATININE 1.1 mg/dL (0.55-1.02); ESTIMATED GFR 64 mL/min (>60); GLUCOSE RANDOM 134 mg/dL (80-116); POTASSIUM,K 3.3 mmol/L (3.5-5.3); SODIUM,NA 142 mmol/L (135-145)
[2023-10-23 10:36] LABS: LIPASE 33 U/L (16-77)
[2023-10-23] MEDS: Sodium Chloride 0.9% 1,000 ML IV ONE (10:38)
[2023-10-23] MEDS: Morphine 4 MG/ML VIAL IVPUSH ONE (10:38)
[2023-10-23] MEDS: Ondansetron 4 MG/2 ML SDV IVPUSH ONE (10:38)
[2023-10-23 10:40] LABS: BILIRUBIN,URINE NEGATIVE (NEGATIVE); GLUCOSE,URINE NORMAL (NORMAL); KETONES,URINE 50 mg/dL (NEGATIVE); LEUKOCYTE ESTERASE,URINE NEGATIVE (NEGATIVE); NITRITE,URINE NEGATIVE (NEGATIVE); OCCULT BLOOD,URINE MODERATE (NEGATIVE); PROTEIN,URINE TRACE mg/dL (NEGATIVE); UROBILINOGEN,URINE NORMAL (NEGATIVE)
[2023-10-23 10:40] LABS: ALANINE AMINOTRANSFERASE,ALT 19 U/L (12-36); ALBUMIN 3.8 g/dL (3.5-5.2); ALKALINE PHOSPHATASE 66 IU/L (56-112); ASPARTATE AMNIOTRANSFERASE,AST 17 IU/L (5-25); BILIRUBIN TOTAL 1.5 mg/dL (0.1-1.3); C-REACTIVE PROTEIN < 0.50 mg/dL (<0.50); MAGNESIUM 2.1 mg/dL (1.8-2.5); PROTEIN TOTAL,TP 7.5 g/dL (6.0-8.0)
[2023-10-23 10:41] LABS: APPEARANCE,URINE CLEAR (CLEAR); COLOR,URINE YELLOW (YELLOW)
[2023-10-23 10:42] LABS: BACTERIA,URINE FEW (NS); SQUAMOUS EPITHELIAL CELLS,UR MODERATE (NS,R,O); WBC,URINE 0-5 (0-5)
[2023-10-23] MEDS: Ketorolac 30 MG/ML SDV IVPUSH ONE (11:04)
[2023-10-23] MEDS: HYDROmorphone 2 MG/ML SDV IVPUSH ONE (11:12)
== END 2023-10-23 13:55 | disposition home or self-care (01) ==
LOC: FB.ED 09:57
DX: N13.2 Hydronephrosis with renal and ureteral calculous obstruction (principal); N13.9 Obstructive and reflux uropathy, unspecified; F17.200 Nicotine dependence, unspecified, uncomplicated; Z88.8 Allergy status to other drugs, medicaments and biological substances; Z88.6 Allergy status to analgesic agent; Z91.041 Radiographic dye allergy status; Z88.5 Allergy status to narcotic agent; Z79.899 Other long term (current) drug therapy; Z86.19 Personal history of other infectious and parasitic diseases
CPT/HCPCS: 36415; 74176; 80053; 81001; 81025; 83690; 83735; 85025; 86140; 96361; 96374; 96375; 99284; J1170; J1885; J2270; J2405; J3490; J7030

== ENCOUNTER 2023-10-28 20:17 | Emergency (ER) | payer MEDICARE, MEDICAID ==
[2023-10-28] MEDS ORDERED: Sulfamethoxazole/Trimethoprim 800-160 MG Tab PO ONE (20:18)
[2023-10-28] MEDS ORDERED: Sodium Chloride 0.9% 10 ML Syringe FLUSH PRN (20:45)
[2023-10-28 21:04] LABS: BASOPHILS PERCENT AUTO 0.5 % (0.2-1.5); EOSINOPHILS ABSOLUTE AUTO 0.3 x10-3/uL (0.0-0.8); EOSINOPHILS PERCENT AUTO 4.4 % (0.6-8.1); HEMATOCRIT 40.9 % (34.2-48.2); HEMOGLOBIN 13.9 g/dL (11.4-15.5); LYMPHOCYTES ABSOLUTE AUTO 2.2 x10-3/uL (1.0-4.4); LYMPHOCYTES PERCENT AUTO 36.1 % (18.4-52.1); MEAN CORPUSCULAR HEMOGLOBIN 30.5 pg (23.9-33.9); MEAN CORPUSCULAR HGB CONC 34.1 g/dL (31.9-34.8); MEAN CORPUSCULAR VOLUME 89.5 fL (76.7-100.5); MEAN PLATELET VOLUME 9.5 fL (7.1-12.4); MONOCYTES ABSOLUTE AUTO 0.3 x10-3/uL (0.3-1.0); MONOCYTES PERCENT AUTO 4.3 % (4.4-15.7); NEUTROPHILS ABSOLUTE AUTO 3.3 x10-3/uL (1.5-6.3); NEUTROPHILS PERCENT AUTO 54.7 % (30.8-76.2); PLATELET COUNT,PLT 185 x10(3)uL (151-488); RED BLOOD CELL COUNT 4.57 x10(6)uL (3.60-5.20); RED CELL DISTRIBUTION WIDTH 12.8 % (12.3-16.5)
[2023-10-28 21:06] LABS: BLOOD UREA NITROGEN,BUN 19 mg/dL (7-18); BUN/CREATININE RATIO 23.8 (9-20); CARBON DIOXIDE,CO2 25 mmol/L (21-32); CHLORIDE,CL 104 mmol/L (100-110); CREATININE 0.8 mg/dL (0.55-1.02); ESTIMATED GFR 93 mL/min (>60); GLUCOSE RANDOM 100 mg/dL (80-116); SODIUM,NA 139 mmol/L (135-145)
[2023-10-28] MEDS: Sodium Chloride 0.9% 1,000 ML IV SCH (21:11)
[2023-10-28 21:12] LABS: ALANINE AMINOTRANSFERASE,ALT 20 U/L (12-36); ALBUMIN 3.7 g/dL (3.5-5.2); ALKALINE PHOSPHATASE 80 IU/L (56-112); AMYLASE 51 U/L (25-115); ASPARTATE AMNIOTRANSFERASE,AST 15 IU/L (5-25); BILIRUBIN TOTAL 0.5 mg/dL (0.1-1.3); PROTEIN TOTAL,TP 7.5 g/dL (6.0-8.0)
[2023-10-28] MEDS: Morphine 4 MG/ML VIAL IVPUSH ONE (21:12)
[2023-10-28] MEDS: Ketorolac 30 MG/ML SDV IVPUSH ONE (21:12)
[2023-10-28] MEDS: Prochlorperazine 10 MG/2 ML SDV IVPUSH ONE (21:12)
[2023-10-28 22:22] LABS: BILIRUBIN,URINE NEGATIVE (NEGATIVE); GLUCOSE,URINE NORMAL (NORMAL); KETONES,URINE NEGATIVE (NEGATIVE); LEUKOCYTE ESTERASE,URINE LARGE (NEGATIVE); NITRITE,URINE NEGATIVE (NEGATIVE); OCCULT BLOOD,URINE LARGE (NEGATIVE); PROTEIN,URINE 500 mg/dL (NEGATIVE); UROBILINOGEN,URINE NORMAL (NEGATIVE)
[2023-10-28 22:26] LABS: APPEARANCE,URINE CLOUDY (CLEAR); COLOR,URINE RED (YELLOW); RBC,URINE PACKED (0-5); WBC,URINE PACKED (0-5)
== END 2023-10-28 22:42 | disposition home or self-care (01) ==
LOC: FB.ED 20:17
DX: N39.0 Urinary tract infection, site not specified (principal); Z96.0 Presence of urogenital implants; Z88.8 Allergy status to other drugs, medicaments and biological substances; Z88.5 Allergy status to narcotic agent; Z88.6 Allergy status to analgesic agent; Z91.041 Radiographic dye allergy status; Z79.899 Other long term (current) drug therapy; Z86.19 Personal history of other infectious and parasitic diseases
CPT/HCPCS: 36415; 74176; 80053; 81001; 82150; 83690; 84702; 85025; 87086; 96374; 96375; 99283; 99284-25; A9270-GY; J0780; J1885; J2270; J7030

== ENCOUNTER 2023-11-14 20:49 | Emergency (ER) | payer MEDICARE, MEDICAID | END 2023-11-14 21:40 | disposition home or self-care (01) | LOC: FB.ED 20:49 | DX: S90.31XA Contusion of right foot, initial encounter (principal); F17.210 Nicotine dependence, cigarettes, uncomplicated; Z88.8 Allergy status to other drugs, medicaments and biological substances; Z91.041 Radiographic dye allergy status; Z79.899 Other long term (current) drug therapy; Z86.19 Personal history of other infectious and parasitic diseases; W20.8XXA Other cause of strike by thrown, projected or falling object, initial encounter | CPT/HCPCS: 73630-RT; 99283 ==

== ENCOUNTER 2024-07-24 18:36 | Emergency (ER) | payer MEDICAID, MEDICARE ==
[2024-07-24] MEDS ORDERED: Acetaminophen/HYDROcodone 325-5 MG Tab PO ONE (18:37)
[2024-07-24] MEDS: Ketorolac 30 MG/ML SDV IM ONE (19:23)
[2024-07-24] MEDS: Acetaminophen/HYDROcodone 325-5 MG Tab PO ONE (19:23)
[2024-07-24] MEDS: Amoxicillin/Clavulanate K 875-125 MG Tab PO ONE (19:23)
== END 2024-07-24 19:44 | disposition home or self-care (01) ==
LOC: FB.ED 18:36
DX: H60.92 Unspecified otitis externa, left ear (principal); J06.9 Acute upper respiratory infection, unspecified; F17.210 Nicotine dependence, cigarettes, uncomplicated; Z90.6 Acquired absence of other parts of urinary tract; Z88.5 Allergy status to narcotic agent; Z88.8 Allergy status to other drugs, medicaments and biological substances; Z79.899 Other long term (current) drug therapy
CPT/HCPCS: 96372; 99282; A9270; J1885